=== PATIENT | male | born 1955 | race Caucasian/White ===

== ENCOUNTER 2018-12-19 10:26 | Inpatient (IN) | payer OTHER ==
--- NOTE | 2018-12-19 12:16 | RAD ---
EXAM: XR Ankle Lt 3 View STANDARD PROVIDED CLINICAL HISTORY: Pain FINDINGS: There is no evidence for fracture or other acute osseous abnormality. Alignment appears anatomic. Rosa M nt spaces appear preserved. IMPRESSION: No evidence for an acute osseous abnormality. If there is persistent clinical concern, conservative m anagement and follow-up imaging advised.
[2018-12-19 12:19] LABS: #Lymphocytes 0.8 thou/uL (1.20-3.40); #Monocytes 0.7 thou/uL (0.11-0.59); #Neutrophils 10.3 thou/uL (1.40-6.50); %Eosinophils 0.1 % (0.0-10.0); %Lymphocytes 6.5 % (21.0-51.0); %Monocytes 6.1 % (0.0-10.0); %Neutrophils 87.4 % (42.0-75.0); Hemoglobin 9.4 g/dL (14.0-18.0); Mean Corpuscular HGB CONC 32.2 g/dL (32.0-36.0); Mean Corpuscular Hemoglobin 26.4 pg (27.0-31.0); Mean Platelet Volume 5.5 fL (7.4-10.4); Platelet Count 652 thou/uL (130-400); RBC Distribution Width 14.6 % (11.5-14.5); Red Blood Cell (RBC) Count 3.57 mill/uL (4.70-6.10); White Blood Cell (WBC) Count 11.8 thou/uL (4.8-10.8)
[2018-12-19 12:39] LABS: ALT (SGPT) 24 U/L (8-55); AST (SGOT) 16 U/L (5-34); Albumin 2.7 g/dL (3.4-4.8); Alkaline Phosphatase 292 U/L (40-150); Anion Gap 10 mmol/L (10-20); BUN (Urea Nitrogen) 10 mg/dL (8.4-25.7); Bilirubin, Total 0.5 mg/dL (0.2-1.2); Calc. Creatinine Clearance 0 mL/min (70-130); Calcium 8.6 mg/dL (7.8-10.44); Carbon Dioxide 32 mmol/L (23-31); Chloride 93 mmol/L (98-107); Estimated GFR-MDRD Greater than 90; Globulin 3.7 g/dL (2.4-3.5); Glucose 98 mg/dL (80-115); Lipase 7 U/L (8-78); Potassium 3.1 mmol/L (3.5-5.1); Protein, Total 6.4 g/dL (5.8-8.1); Sodium 132 mmol/L (136-145)
[2018-12-19] MEDS ORDERED: Morphine 4 MG/ML VIAL ONE (12:45)
--- NOTE | 2018-12-19 12:52 | ULT ---
LEFT LOWER EXTREMITY VENOUS DOPPLER ULTRASOUND EVALUATION: HISTORY: Left lower extremity swelling and pain. FINDINGS: Images demonstrate echogenic clot in the left common femoral vein with some flow through it and adjac ent to it. This suggests incomplete left common femoral vein occlusion. The left superficial femoral vein and femoral profunda are patent. Good flow seen in the left poplite al vein and posterior tibial veins. The left greater saphenous vein is also patent. IMPRESSION: Partial thrombosis of the left common femoral vein. Transcribed Date/Time: 12/19/2018 12:56 PM
--- NOTE | 2018-12-19 13:27 | CT ---
CONTRAST ENHANCED CT IMAGES ABDOMEN AND PELVIS: HISTORY: Known renal mass with back pain, abdominal pain. COMPARISON: Comparison is made to previous exam from 10/25/2018. FINDINGS: The lung bases are unremarkable. No evidence of free intraperitoneal air seen. The liver, spleen and gallbladder are unremarkable. Adrenal glands unremarkable. Left ureteral stent is in place. There is a large amount of stool seen in the colon. Areas of abnormal thickening seen in the sigmoid colon noted on patient's previous CT, although not as extensive as on the previous exam. Appearing to originate from this area of sigmoid colon is a soft tissue area in the retroperitoneum which exten ds to the left of the L5 vertebral body measuring approximately 3.5 x 2.1 cm. There is also some heterogeneous enhancement involving the posterior aspect of the psoas muscle on axial image #50. A sm all pocket of gas is seen in the medial aspect of the psoas muscle on image #42. This is concerning for an inferior left psoas abscess. Areas of abnormal thickened small bowel also seen compatible the patient's history of colitis. The jossie brown has had partial resection of the distal small bowel with remaining shortened small bowel being abnormally thickened and inflamed. IMPRESSION: Continued areas of small bowel abnormal thickening and sigmoid colonic thickening compatible with jorge a collins's history of colitis. No definite evidence of definite high-grade bowel obstruction with air-fluid level seen. There is retroperitoneal and lower lumbar paravertebral soft tissue density whi ch extends into the left psoas muscle concerning for an abscess or phlegmon. Correlation of this area including the lumbar spine with pre and postcontrast enhanced MRI may be of use. Transcribed Date/Time: 12/19/2018 2:00 PM
[2018-12-19 14:18] LABS: Bilirubin Negative (Negative); Blood, Urine Large (Negative); Clarity CLOUDY (Clear); Glucose, Urine (Dipstick) Negative (Negative); Leukocyte Negative (Negative); Nitrite Negative (Negative); Protein, Urine (Dipstick) 100 mg/dL (Neg-Trace); Specific Gravity, Urine 1.016 (1.002-1.036); pH, Urine 7.5 (5.0-9.0)
[2018-12-19 14:21] LABS: Bacteria/HPF None Seen HPF (None Seen); Hyaline Casts/LPF 4-6 HYALINE CAST LPF (0-3 Hyaline); Pathc Cast-AUWi Flag 0.68 (0-2.49); RBC/HPF GREATER THAN 50-TNTC HPF (0-3); Squamous Epithelial 0-3 HPF (0-3); WBC/HPF 0-3 HPF (0-3)
[2018-12-19 14:35] LABS: Crystals/HPF 1+ AMORPH PHOS HPF (Negative)
[2018-12-19 14:36] LABS: INR-International Normal Ratio 1.1; PTT 27.5 SEC (22.9-36.1); Prothrombin Time 14.6 SEC (12.0-14.7)
[2018-12-19] MEDS ORDERED: Enoxaparin Sodium 60 MG/0.6 ML SYRINGE ONE (14:49)
[2018-12-19] MEDS ORDERED: metroNIDAZOLE 500 MG/100 ML BAG ONE (14:58)
[2018-12-19] MEDS ORDERED: Heparin 1,000 UNITS/ML VIAL ONE (15:00)
[2018-12-19] MEDS ORDERED: Vancomycin HCl 1.5 GM in Sodium Chloride 0.9% 250 ML 300 ML IVPB SCH ×2 (16:00→23:15)
[2018-12-19] MEDS ORDERED: ISOVUE-370 76%-LOCM 1 ML ONE (16:58)
[2018-12-19] MEDS ORDERED: Gadobenate Dimeglumine 529 MG/1 ML (20ML VIAL) ONE (17:03)
[2018-12-19] MEDS ORDERED: Potassium Chloride 20 MEQ TAB PO SCH (18:15)
--- NOTE | 2018-12-19 18:36 | HP ---
PRIMARY CARE: None. CHIEF COMPLAINT: "Pain got worse." HISTORY OF PRESENT ILLNESS: This is a 63-year-old male, hospitalized at [facility] [place] in [place] for back, leg and abdominal pain associated with dysuria. 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 The mass was not amenable to IR biopsy, he underwent colonoscopy, which identified a stricture and per the patient and his family, the biopsy results were negative. There were recommendations for outpatient followup and biopsy, however, they did not find a physician that was willing to perform it secondary to location. The patient reports he was discharged to home and continued to have pain that has gradually worsened to the point where he is not eating, not ambulating much and generally feeling poorly. He denies any fevers, chills, nausea, or vomiting. He does report his last bowel movement was normal 2 days ago and averages 3 bowel movements per day that are nonbloody. He describes the pain as aching and constant, rated at 9/10 and is located in the inguinal area, radiating up into the back on the left side as well as down his left leg. It is better with lying still, worse with sitting or putting pressure on that area. Prior to his hospitalization, he had never had a colonoscopy, or prior history of similar symptoms. He denies any trauma or precipitating factors. For pain, he has been managing with Tylenol, taking 1 tablet per day, and reports it is ineffective. In the emergency room, the patient found to have a DVT in his left lower extremity, as well as abnormal thickening of the small bowel and sigmoid colon, retroperitoneal and lower lumbar soft tissue density, which extends into the left psoas muscle concerning for an abscess. He received morphine 8 mg IV, 1 L normal saline, Lovenox 60 mg, metronidazole 500 mg, and hospitalist called for admission. Vancomycin is ordered but not given, and Levaquin ordered by not given. ALLERGY TO MEDICATION: Penicillin. CURRENT MEDICATIONS: Tylenol. PAST MEDICAL HISTORY: From hospitalization in September 2018 was for left mesenteric mass 7 cm with abnormal adenopathy, left ureteral obstruction, status post stent , emphysematous changes on CT scan. PAST SURGICAL HISTORY: Left ureteral stent. SOCIAL HISTORY: The patient uses a half pack of tobacco per day, reports quitting alcohol 3 years ago. He lives with his , Quan, and his daughter, Camille Brand is his surrogate decision maker and he is a full code. FAMILY HISTORY: He denies. REVIEW OF SYSTEMS: Negative for fevers, chills, nausea, or vomiting. Positive for progressive worsening of pain and dysuria. Positive also for sneezing and congestion that occurred since he was in MRI today. All remaining review of systems are reviewed and negative. PHYSICAL EXAMINATION: VITAL SIGNS: Blood pressure 143/79, pulse 87, respirations 20, temperature 97.8 , and saturations are 100% on room air. GENERAL: Awake, alert, responsive, in no apparent distress. HEENT: Pupils are equal, round, and reactive to light. Oral mucosa is pink and slightly dry. Poor dentition. NECK: Supple, nontender. LYMPHATICS: No palpable cervical or supraclavicular lymphadenopathy. LUNGS: Clear to auscultation bilateral. No audible wheezing, rhonchi, or rales. HEART: Normal S1 and S2. Regular rate and rhythm. No audible murmurs. ABDOMEN: Soft with present bowel sounds. Tenderness to palpation throughout the left side. No rebound or guarding. EXTREMITIES: 1+ pitting edema in his left foot and distal lower extremity. SKIN: No erythema or exanthems. NEURO: Moves arms and legs equally. PSYCH: Appears euthymic. VASCULAR: 2+ dorsalis pedis pulses. LABORATORY DATA: CBC: 11.8, 9.4, 29.3, 652. D-dimer 2.02. INR 1.1. Chemistry: 132, 3.1, 93, 32, 10, 0.65. AST 16, ALT 24, alkaline phosphatase 292, total protein 6.4, and albumin 3.7. Lipase is 7. Urine shows present protein, large blood with greater than 50 red blood cells, and 4 to 6 hyaline casts. IMAGING DATA: Ankle x-ray, negative for an acute abnormality. Foot x-ray, negative for acute abnormality. Left lower extremity ultrasound, partial thrombosis of the left common femoral vein. Abdomen pelvic CT personally reviewed, small bowel abnormal thickening and sigmoid colon thickening compatible with history of colitis. No definite high-grade bowel obstruction. Retroperitoneal and lower lumbar paravertebral soft tissue density , which extends into the left psoas muscle concerning for an abscess or phlegmon, with recommendation for lumbar spine pre and postcontrast enhanced MRI. EKG, personally reviewed, normal axis, sinus rhythm, normal intervals, no ST changes. IMPRESSION: 1. Soft tissue density in the left paravertebral areas, previously characterized as mass, which has not been biopsied. Differential diagnosis for today includes abscess and mass. 2. Left ureteral obstruction with hematuria, status post stent that was placed now 3 months ago. 3. Hyponatremia, uncertain etiology. 4. Anemia, uncertain chronicity and etiology. 5. Hypokalemia. 6. Tobacco abuse with history of emphysematous changes on imaging. PLAN: 1. Admission to the hospital. 2. Consultation with General Surgery, who has evaluated the patient and plan to start with IV antibiotic therapy. 3. ID consultation for discernment on antibiotic coverage. 4. Continuing the Lovenox for now diagnosed DVT, left lower extremity, monitor for bleeding. 5. Monitor hemoglobin. We will check iron and vitamin studies for source of anemia. Type and screen 6. Urine studies for workup of hyponatremia, and replacement of potassium. 7. Given the hematuria, the ureteral stent, the need for full anticoagulation for the DVT, we will place Urology consult for assistance/guidance. 8. Manage pain with morphine, which the patient reports helped in the emergency room. Will add scheduled and prn bowel meds to reduce likelihood of constipation with morphine. 9. GI prophylaxis not indicated. The patient will be written for a diet. 10. Code status is full. Surrogate decision maker is the patient's daughter. 11. Reviewed the plan of care with the patient and his family. No questions or further needs at the end of evaluation. 12. The patient is at high risk given age, comorbidities, and current presentation. Job ID: [id number] [facility]
--- NOTE | 2018-12-19 19:04 | MRI ---
PRE AND POST CONTRAST ENHANCEMENT MRI IMAGES OF THE THORACIC SPINE: History: Back pain. Technique: Multiplanar, multisequence MRI images were obtained of the thoracic spine before and after the administration of IV contrast. FINDINGS: The thoracic spine is unremarkable with no evidence of thoracic spine masses or lesions. No evidence of vertebral body fractures seen. Disc spaces are well maintained. The neural foramen are patent. IMPRESSION: Unremarkable pre and post contrast enhanced MRI images of the thoracic spine. POS: FFK
--- NOTE | 2018-12-19 20:20 | MRI ---
PRE AND POST CONTRAST ENHANCED MRI OF THE LUMBAR SPINE: History: Abnormal density seen on CT. Evaluate for psoas abscess and spinal abscess. Technique: Multiplanar, multisequence pre and post contrast MRI images were obtained of the lumbar sp ine. FINDINGS: For the purposes of this dictation, the last freely mobile vertebral body will be considered to be th e L5 vertebral body. All other vertebral bodies are numbered according to this. T12-L1, L1-2: Unremarkable. L2-3: Mild disc desiccation is seen. The central canal and neural foramen are patent. Left sided hydronephrosis is seen with left ureteral stent in place. L3-4: The central canal and neural foramen are patent. Some mild asymmetry is seen beginning at the L3-4 level of the psoas extending inferiorly along the m edial aspect of the left psoas muscle into the pelvis extending all the way to the upper sacral regio n. There is a left paravertebral collection which extends from L3 and involves the left paravertebral area anterior and to the left of the L4 and L5 vertebra. It extends into the anterior aspect of the S1 and S2 sacral vertebrae. As noted on CT, it may originate from the sigmoid colon and is concerning for paravertebral abscess. The abscess appears for the most part in the left prevertebral space. The re are areas of signal abnormality within the L5 vertebral body as well as the S1 and S2 vertebra as well as the sacral ala at these levels, more on the left than on the right. This is concerning for os teomyelitis of L5, S1, and S2 vertebral levels. The left L4, L5, and left S1 no roots appear to be en veloped by the left paravertebral collection. IMPRESSION: Left paravertebral area of soft tissue abnormality involving the psoas and prevertebral soft tissue. This is concerning for prevertebral abscess which extends and involves posteriorly the L5 and upper s acral vertebral levels. No evidence of epidural abscess or collection seen. At L5 and upper sacral re gions these soft tissue does envelop the exiting L4, L5 and S1 nerve roots. The L5 and S1 vertebra do demonstrate some T2 signal changes within the vertebral body. POS: FFK
[2018-12-19] MEDS: metroNIDAZOLE 500 MG in Premix Bag 1 BAG IVPB SCH (20:48)
[2018-12-19] MEDS ORDERED: Polyethylene Glycol 3350 17 GM Packet PO PRN (21:58)
--- NOTE | 2018-12-19 22:38 | CON ---
DATE OF CONSULTATION: REASON FOR CONSULT: Psoas abscess. HISTORY OF PRESENT ILLNESS: Mr. Andre is a 63-year-old man, with a 3-month history of abdominal and back pain. He stated that he has chronic constipation alternating with diarrhea for sometime and had onset of abdominal pain, back pain, and 4 days of diarrhea. He went to the [facility] in [place], [place], where he was told that he had a mass that was blocking his kidney. He underwent a colonoscopy, which he was told was normal and a ureteral stent placement on the left and was sent home with a week of antibiotics. He states that his symptoms got better for a little while, but then came back. He had continuous abdominal and back pain as well as left leg swelling and early satiety. He can only eat a few bites of food and then feels full. He has some nausea as well, but denies any fevers or chills throughout. He has lost about 20 pounds through this whole process and finally decided to come back and get re-evaluated. He was seen in our emergency room and was found to have evidence of a psoas abscess as well as a left common femoral DVT. PAST MEDICAL HISTORY: Alcohol abuse, but quit 3 years ago. He smokes half a pack a day. Does not use illicit drugs. PAST SURGICAL HISTORY: Colonoscopy and ureteral stent placement in September. FAMILY HISTORY: Mother had colon cancer in her 60s. Grandmother had pancreas cancer and grandfather had brain cancer. REVIEW OF SYSTEMS: Ten system review of systems is negative except per HPI. He continues to have alternating constipation and diarrhea as is typical for him. PHYSICAL EXAMINATION: VITAL SIGNS: The patient is afebrile with normal vital signs. HEENT: Unremarkable. NECK: Supple without lymphadenopathy or thyroid nodules. HEART: Regular in its rate and rhythm without murmurs, rubs, or gallops. LUNGS: Clear to auscultation bilaterally. ABDOMEN: Soft, slightly distended. No palpable masses or hernias. He is tender to palpation in the left lower quadrant, left flank, and back, but does not exhibit rigidity, rebound, or guarding. EXTREMITIES: His left ankle is swollen compared to the right with pitting edema. He has good pedal pulses. NEUROLOGICAL: No focal deficits. PSYCHIATRY: Alert, oriented, and appropriate and able to give a good history. LABORATORY DATA: White count is elevated at 11.8 with a left shift. Platelets are 652. Hematocrit is 29.3. Coags are normal. D-dimer is high at 2.02. Sodium is low at 132, potassium is low at 3.1, bicarb is elevated at 32, alkaline phosphatase is elevated at 292, albumin is low at 2.7. IMAGING STUDIES: CT images are reviewed and I agree with the written report. There is swelling and hypodensity of the psoas muscle with a few little pockets of air consistent with infection in this area. I do not see a definite fluid pocket in this and the involved area lies immediately behind the left ureter and iliac artery abutting the vertebral body. ASSESSMENT: Psoas abscess, questionable involvement of the vertebral body given alkaline phosphatase elevation and back pain. This does not appear to be percutaneously drainable and will be very difficult to address laparoscopically due to its location behind the ureter and iliac artery. He would likely require an open surgery to surgically drain this abscess; however, it may be more of a phlegmon than an abscess at this point, and the area most suspicious for an abscess is only about 3.5 x 2 cm in size. It might be difficult even open to locate this area. At this point, I favor a trial of IV antibiotics with reimaging at a later date. If this persists or enlarge, an open drainage will likely be necessary. The colon looks a little bit inflamed as well, but certainly I do not see anything that looks like a mass and he did have a colonoscopy at [place] according to him and his family. So this is all likely infectious in etiology. I suspect he had a partial treatment with his short course of antibiotics and that this is more of a smouldering partially treated infection than an aggressive one. He does have a large amount of stool in the right and transverse colon, but does not look like he is obstructed. He will require a bowel regimen and nutritional support as well with oral supplements. At this point since urgent surgery is not planned, full anticoagulation for his DVT is indicated. If he fails medical management, we can hold this perioperatively. Job ID: [id number]
[2018-12-20] MEDS: Morphine 4 MG/ML VIAL SLOW IVP PRN ×2 (01:25→18:36)
[2018-12-20] MEDS: metroNIDAZOLE 500 MG in Premix Bag 1 BAG IVPB SCH ×2 (05:27→14:50)
[2018-12-20] MEDS ORDERED: Enoxaparin Sodium 60 MG/0.6 ML SYRINGE SC SCH ×2 (06:00→09:00)
[2018-12-20 06:24] LABS: #Lymphocytes 0.8 thou/uL (1.20-3.40); #Monocytes 0.8 thou/uL (0.11-0.59); #Neutrophils 8.3 thou/uL (1.40-6.50); %Lymphocytes 7.7 % (21.0-51.0); %Monocytes 8.2 % (0.0-10.0); %Neutrophils 84.2 % (42.0-75.0); Mean Corpuscular Hemoglobin 26.2 pg (27.0-31.0); Mean Corpuscular Volume 81.8 fL (78.0-98.0); Mean Platelet Volume 5.9 fL (7.4-10.4); Platelet Count 527 thou/uL (130-400); RBC Distribution Width 14.4 % (11.5-14.5); Red Blood Cell (RBC) Count 3.07 mill/uL (4.70-6.10); White Blood Cell (WBC) Count 9.8 thou/uL (4.8-10.8)
[2018-12-20 06:46] LABS: Anion Gap 15 mmol/L (10-20); BUN (Urea Nitrogen) 9 mg/dL (8.4-25.7); Calc. Creatinine Clearance 91 mL/min (70-130); Calcium 8.4 mg/dL (7.8-10.44); Carbon Dioxide 24 mmol/L (23-31); Chloride 98 mmol/L (98-107); Estimated GFR-MDRD Greater than 90; Glucose 77 mg/dL (80-115); Iron 17 ug/dL (65-175); Potassium 3.8 mmol/L (3.5-5.1); Sodium 133 mmol/L (136-145); Transferrin, Serum 76 mg/dL (163-344)
[2018-12-20 07:16] LABS: Folate (Folic Acid) 15.4 ng/mL (7.0-31.4)
--- NOTE | 2018-12-20 07:41 | PDOC.PN ---
- Subjective Encounter Start Date: 12/20/18 Encounter Start Time: 09:20 Subjective: Patient with abdpain well controlled on medications. No SOB. No Chest pain. -: Left thigh still hurting on and off. - Objective Resuscitation Status - Order Detail: 12/19/18 17:47 Resuscitation Status Routine Resuscitation Status: FULL: Full Resuscitation MAR Reviewed: Yes Vital Signs & Weight: Vital Signs (12 hours) Temp Pulse Resp BP Pulse Ox 12/20/18 07:21 98.1 F 102 H 15 125/74 92 L 12/20/18 04:00 98.3 F 101 H 20 135/75 92 L 12/20/18 00:00 99.2 F 112 H 20 128/75 92 L 12/19/18 19:45 94 L Weight Weight 117 lb 14.4 oz I&O: 12/19/18 12/20/18 12/21/18 06:59 06:59 06:59 Intake Total 640 Balance 640 Result Diagrams: 12/20/18 05:00 12/20/18 05:00 Additional Labs: Accuchecks 12/19/18 20:25 POC Glucose 161 H Phys Exam - Physical Examination Constitutional: NAD HEENT: moist MMs Respiratory: no rales, no rhonchi rare wheeze Cardiovascular: RRR, no significant murmur Gastrointestinal: soft, positive bowel sounds mild TTP LLQ Musculoskeletal: no edema Neurological: non-focal, moves all 4 limbs Psychiatric: normal affect, A&O x 3 Dx/Plan (1) Psoas abscess, left Code(s): K68.12 - PSOAS MUSCLE ABSCESS Status: Acute Comment: on Levaquin, Metronidazole, and Vancomycin since 12/19/2018, Dr. Cornelius and Dr. Horn consulted (2) Ureteral obstruction, left Code(s): N13.5 - CROSSING VESSEL AND STRICTURE OF URETER W/O HYDRONEPHROSIS Status: Acute Comment: s/p stent placement in [employer], urology consulted (3) Anemia Code(s): D64.9 - ANEMIA, UNSPECIFIED Status: Acute Comment: likely due to chronic disease as well as urinary or GI blood loss (4) Hyponatremia Code(s): E87.1 - HYPO-OSMOLALITY AND HYPONATREMIA Status: Acute Comment: mild, observe (5) Hypokalemia Code(s): E87.6 - HYPOKALEMIA Status: Resolved (6) Tobacco abuse Code(s): Z72.0 - TOBACCO USE Status: Acute (7) Deep venous thrombosis of left femoral vein Code(s): I82.412 - ACUTE EMBOLISM AND THROMBOSIS OF LEFT FEMORAL VEIN Status: Acute Qualifiers: Chronicity: acute Qualified Code(s): I82.412 - Acute embolism and thrombosis of left femoral vein Comment: on full dose Lovenox - Plan cont current plan of care, continue antibiotics, DVT proph w/lovenox Continue IV antibiotics, abscess in difficult place to access so hopefully -: will improved with abx only. * . - Discharge Day Encounter end time: 09:30
[2018-12-20] MEDS: Senokot S 8.6-50 MG TAB PO SCH ×2 (08:51→21:24)
[2018-12-20] MEDS: Vancomycin HCl 1 GM in Premix Bag 1 BAG IVPB SCH (11:03)
--- NOTE | 2018-12-20 14:59 | PDOC.GSPN ---
Surgery Progress Note: Subj - Subjective Narrative: Patient feels a little better today. He is still having a lot of back pain which makes it hard for him to sleep. We did get the records from [facility]. CT report states that there was a 7.1 cm spiculated mass in the retroperitoneum abutting the sigmoid colon. I don't really see anything on his most recent CT scan that is consistent with that description. I think this is likely an inflammatory phlegmon related to diverticulitis, especially given a normal colonoscopy, but I will review the scans with our radiologist. I don't know if it would be helpful to get additional imaging of that area with oral contrast as well. Unfortunately I do not have access to the previous images, although we can try to obtain these. Dr. Horn has been by to see the patient. There was some abnormal signaling in the vertebrae on lumbar MRI. The patient is tolerating his diet but doesn't like the hospital food. I did tell him that he could ask his family to bring in food from home. I will also order some supplements. Surgery Progress Note: Obj - Vital signs Vital signs: Vital Signs - Most Recent Temp Pulse Resp BP Pulse Ox 98.1 F 96 16 144/85 H 96 12/20/18 07:21 12/20/18 12:00 12/20/18 12:00 12/20/18 12:00 12/20/18 12:00 Surgery Progress Note: Results - Labs Result Diagrams: 12/20/18 05:00 12/20/18 05:00 Lab results: Laboratory Results - last 24 hr 12/20/18 12/20/18 12/20/18 05:00 05:00 05:00 WBC RBC Hgb Hct MCV MCH MCHC RDW Plt Count MPV Neutrophils % Lymphocytes % Monocytes % Eosinophils % Basophils % Neutrophils # Lymphocytes # Monocytes # Eosinophils # Basophils # Sodium 133 L Potassium 3.8 Chloride 98 Carbon Dioxide 24 Anion Gap 15 BUN 9 Creatinine 0.63 L Estimated GFR (MDRD) Greater than 90 Glucose 77 L Calcium 8.4 Iron 17 L Transferrin 76 L Ferritin 666.86 H Vitamin B12 307 Folate 15.40 12/20/18 05:00 WBC 9.8 RBC 3.07 L Hgb 8.0 L Hct 25.1 L MCV 81.8 MCH 26.2 L MCHC 32.0 RDW 14.4 Plt Count 527 H MPV 5.9 L Neutrophils % 84.2 H Lymphocytes % 7.7 L Monocytes % 8.2 Eosinophils % 0.0 Basophils % 0.0 Neutrophils # 8.3 H Lymphocytes # 0.8 L Monocytes # 0.8 H Eosinophils # 0.0 Basophils # 0.0 Sodium Potassium Chloride Carbon Dioxide Anion Gap BUN Creatinine Estimated GFR (MDRD) Glucose Calcium Iron Transferrin Ferritin Vitamin B12 Folate
[2018-12-20] MEDS ORDERED: Heparin 10,000 UNITS/ 10 ML VIAL SLOW IVP SCH (15:15)
[2018-12-20 15:42] LABS: Platelet Count 578 thou/uL (130-400)
--- NOTE | 2018-12-20 19:17 | CON ---
DATE OF CONSULTATION: 12/20/2018 HISTORY OF PRESENT ILLNESS: This is a 63-year-old white male, who was admitted 2 days ago with abdominal pain. He has a complicated history. He was apparently initially seen in [place], [place], at one of the hospitals there in early September. He was found to have a left lower quadrant mass that was felt to be cancer, but no biopsies were done of it. There was left hydronephrosis. I am assuming it was related to this mass, although there is no reports that indicated this to be exactly the case, but there certainly was nothing on the reports that read, or there was a stone or anything like that. It was felt to possibly be colon cancer, had a colonoscopy done that apparently showed only some stricture or some external compression, but nothing that looked like a cancer. This again was all in two and half to three months ago. He has lost about 20 pounds of weight over that time. He has had very poor appetite. He still has bowel movements about every 3 day, which is normal for him. He is having some burning and occasional blood in the urine with the stent in place. He has never had kidney stones to his knowledge. He does not think he has had any history in his family of prostate cancer. His hemoglobin is 8.0 today and it was 9.4 yesterday, it is probably hydration. His white count improved. His creatinine is normal at 0.63. Urinalysis, which was voided shows over 50 red cells, which is pretty common with somebody with the stent and it was described as yellow. No bacteria were seen. There was only 0 to 3 white cells. Urine culture shows no growth at 24 hours of the urine. ALLERGIES: HE HAS AN ALLERGY TO PENICILLIN. MEDICATIONS: He normally only takes Tylenol. PAST MEDICAL HISTORY: No significant medical history in the past. He does have history of tobacco abuse and quit drinking alcohol 3 years ago. He lives in [place]. He was brought here by his daughter, I guess, who grew up in this area. PHYSICAL EXAMINATION: He does not have any flank tenderness. His abdomen is tympanitic, but nontender and soft. Bladder does not feel to be distended. No rebound. No guarding. Penis is without lesion. The testicles descended without mass or tenderness. Rectal exam reveals normal tone. His prostate is not significantly enlarged nor is it nodular. It is a normal consistency. IMPRESSION: 1. History of left hydronephrosis three months ago, was treated with a stent. The family did go back to see the urologist, who said that they would change his stent out at three months and depending on what this mass was and whether it was treated or how it progressed. When they contacted the urologist again, he said he would probably leave it in for 6 months. 2. Microscopic hematuria. 3. Recent deep venous thrombosis and he is going to be anticoagulated. PLAN: Plan then would be to leave his current stent in at least still we know a bit more what is going on with him. He is on antibiotics for a CT scan that done here that suggests there is an abscess, where this mass was in the left lower quadrant. Again, it will be difficult to drain it. It is not a big collection and I think the thoughts are that perhaps antibiotics will take care of this. He is on Flagyl and Levaquin and vancomycin. Stent appears to be in good position. Kidneys seem to be working fine. Urinalysis really is not that bad at all with the stent in and the creatinine is normal. Perhaps, we can find out a little bit more what is going with him and what his diagnosis actually is and what his outcome will be before looking at either removing or changing out the stent. There is no murray on that. I will think waiting another week or two for even longer would not be much of an issue and looks like the stent is in good positioning. Job ID: [id number]
[2018-12-20] MEDS ORDERED: Heparin 25,000 units/D5W 500 ML IVPB SCH (21:00)
--- NOTE | 2018-12-20 21:55 | CON ---
DATE OF CONSULTATION: 12/20/2018 REASON FOR CONSULTATION: Abnormalities on abdomen and pelvis CT scan. HISTORY OF PRESENT ILLNESS: A 63-year-old patient who has history of chronic smoking and 2 months history of weight loss and progressively worsening left flank pain and lumbosacral spine pain. He did have some dysuria associated with it and eventually ended up admitted to hospital in [place] after being to a local emergency room area hospitals. He ended up admitted for 3 days in [facility] in [place] and had a CT which demonstrated a possible mass in the mesentery in the left side. The patient had a stent placed because of identified hydronephrosis, it was felt that the mass was not approachable for biopsy because of the risk of bleeding. He was sent home for followup in the outpatient setting. He ended up now at [facility] with worsening of the pain. No headaches. No visual symptoms, sore throat, odynophagia, or dysphagia. No vomiting. No hematemesis, melena, or hematochezia, still with dysuria. No joint symptoms. He has had at least 15 20 pounds weight loss over the past few months. He did have intermittent low-grade temperature elevation noted. PAST MEDICAL HISTORY: As above, but no other previous medical history. No surgical intervention in the past. SOCIAL HISTORY: Positive smoker. He used to drink daily, but quit 3 years ago. . Lives in [place], close to [facility]. FAMILY HISTORY: Noncontributory. ALLERGIES: PENICILLINS WITH RASH. CURRENT MEDICATIONS: 1. Lovenox. 2. Lactulose. 3. Flagyl. 4. Levaquin. 5. Vancomycin. PHYSICAL EXAMINATION: VITAL SIGNS: T-max 99.7, blood pressure 144/85, pulse 96, respirations 16, and O2 saturation 96%. SKIN: With no abnormalities. No lymphadenopathy. HEENT: Temporal wasting noted. Ocular movements conjugate. Sclerae white. Pupils are equal. Nasal passage patent. Ear exam normal. Oral cavity with numerous missing teeth, remainder ones with marked decay. No mucosal disease. NECK: Supple. No jugular vein distention or carotid bruits. No thyromegaly. LUNGS: Symmetric air entry. No wheezing. HEART: S1 and S2. Regular rate with a soft aortic murmur. ABDOMEN: With some distention, but no tenderness noted. No organomegaly. No ascites. MUSCULOSKELETAL: Tenderness noted in the lumbosacral spine area. No joint inflammatory activity. No edema. Pulses 1+ in dorsalis pedis. Moves extremities equally. NEUROLOGIC: Awake, oriented, follows commands. LABORATORY DATA: White cell counts are 11.8 and 9.8, hemoglobin 9.4, MCV 82, platelets are 652 and 527, 87% neutrophils. INR 1.1. Sodium 132, creatinine 0.65, alkaline phosphatase 292 with albumin 2.7. Iron 17, transferrin 76, ferritin 666, B12, folate normal. Urinalysis with greater than 50 rbc's, 0-3 wbc's. Two sets of blood culture, urine culture, no growth thus far. Abdomen and pelvis CT with small bowel, but abnormal thickening and sigmoid colonic thickening and has retroperitoneal and lower lumbar paravertebral soft tissue density which extends into the left psoas muscle. The MRI of the thoracic spine did not show any significant findings. Lumbar spine MRI with left paravertebral area soft tissue abnormality involving psoas and prevertebral soft tissue either an abscess or mass lesion extending into the vertebra. I do not think the disk is involved in the pictures. Vascular ultrasound, left lower extremity with evidence of deep vein thrombosis, left common femoral vein. ASSESSMENT: 1. Chronic smoking. 2. Pain, chronic, left flank and back. 3. Mild neutrophilia with thrombocytosis. 4. Retroperitoneal mass vs abscess 5. Deep vein thrombosis, left lower extremity. DISCUSSION: Differential diagnosis includes malignancy with obstruction of left kidney, which led to the stent placement versus inflammatory process due to infection with extension into the retroperitoneal or primarily originating in the vertebra and then extending into the retroperitoneum vs malignancy originating in mesentery with retroperitoneal extension. In view of the DVT in the left lower extremity and chronicity of the lesion, one would think that a malignancy is the more likely scenario. I have discussed with Dr. Valdez, Radiology and he is not sure they will be able to access it, but they can try it for cytology and cultures. If that fails, then his only other option would be surgical approach to get a sample for cytology or histopathology. I have ascertained that the hospital in [place] did not submit cultures. The other thing would be assessment of the urine for atypical cells if it could be a urothelial carcinoma. Job ID: [id number] [facility]
[2018-12-21] MEDS: metroNIDAZOLE 500 MG in Premix Bag 1 BAG IVPB SCH ×4 (01:14→17:52)
[2018-12-21] MEDS: Vancomycin HCl 1 GM in Premix Bag 1 BAG IVPB SCH ×3 (01:14→17:00)
[2018-12-21 04:14] LABS: Hemoglobin 8.7 g/dL (14.0-18.0); Platelet Count 599 thou/uL (130-400)
[2018-12-21 04:30] LABS: Calc. Creatinine Clearance 97 mL/min (70-130); Estimated GFR-MDRD Greater than 90
--- NOTE | 2018-12-21 07:41 | PDOC.PN ---
- Subjective Encounter Start Date: 12/21/18 Encounter Start Time: 13:00 Subjective: Patient with persistent left abd pain. Left leg swelling improved. Still -: with soreness in left thigh. No fever. Awaiting CT guided biopsy if -: possible. - Objective Resuscitation Status - Order Detail: 12/19/18 17:47 Resuscitation Status Routine Resuscitation Status: FULL: Full Resuscitation MAR Reviewed: Yes Vital Signs & Weight: Vital Signs (12 hours) Temp Pulse Resp BP Pulse Ox 12/21/18 07:23 98.1 F 95 17 133/77 93 L 12/21/18 04:00 97.9 F 94 20 132/70 93 L Weight Admit Weight 117 lb 14.4 oz Weight 117 lb 6.4 oz I&O: 12/20/18 12/21/18 12/22/18 06:59 06:59 06:59 Intake Total 640 660 Balance 640 660 Result Diagrams: 12/21/18 04:06 12/21/18 04:06 Additional Labs: Accuchecks 12/20/18 16:09 POC Glucose 115 H Phys Exam - Physical Examination Constitutional: NAD HEENT: moist MMs Respiratory: no wheezing, no rales, no rhonchi Cardiovascular: RRR, no significant murmur Gastrointestinal: soft, no distention, positive bowel sounds TTP LLQ Musculoskeletal: no edema Neurological: non-focal, moves all 4 limbs Psychiatric: normal affect, A&O x 3 Dx/Plan (1) Psoas abscess, left Code(s): K68.12 - PSOAS MUSCLE ABSCESS Status: Acute Comment: on Levaquin, Metronidazole, and Vancomycin since 12/19/2018, Dr. Cornelius and Dr. Horn consulted, Dr. Horn concerned about cancer, will attempt needle biopsy 12/21/18 morning (2) Ureteral obstruction, left Code(s): N13.5 - CROSSING VESSEL AND STRICTURE OF URETER W/O HYDRONEPHROSIS Status: Acute Comment: s/p stent placement in [place], urology consulted (3) Anemia Code(s): D64.9 - ANEMIA, UNSPECIFIED Status: Acute Comment: likely due to chronic disease as well as urinary or GI blood loss (4) Hyponatremia Code(s): E87.1 - HYPO-OSMOLALITY AND HYPONATREMIA Status: Acute Comment: mild, observe (5) Hypokalemia Code(s): E87.6 - HYPOKALEMIA Status: Resolved (6) Tobacco abuse Code(s): Z72.0 - TOBACCO USE Status: Acute (7) Deep venous thrombosis of left femoral vein Code(s): I82.412 - ACUTE EMBOLISM AND THROMBOSIS OF LEFT FEMORAL VEIN Status: Acute Qualifiers: Chronicity: acute Qualified Code(s): I82.412 - Acute embolism and thrombosis of left femoral vein Comment: on full dose Lovenox, switched to Heparin for biopsy yesterday, held this AM 6 hours prior to biopsy - Plan cont current plan of care, continue antibiotics Restart Lovenox tonight, at least 4 hours after biopsy. * . - Discharge Day Encounter end time: 13:10
[2018-12-21] MEDS: Senokot S 8.6-50 MG TAB PO SCH ×2 (08:27→20:38)
[2018-12-21] MEDS: Morphine 4 MG/ML VIAL SLOW IVP PRN ×2 (08:28→12:34)
[2018-12-21] MEDS: Acetaminophen 325 MG TAB PO PRN (12:19)
[2018-12-21] MEDS ORDERED: Fentanyl 100 MCG/2 ML VIAL ONE (13:39)
[2018-12-21] MEDS ORDERED: Midazolam HCl 2 mg/2 ml Vial ONE (13:39)
[2018-12-21] MEDS ORDERED: Sodium Bicarbonate 2.5 MEQ/5 ML VIAL ONE (13:40)
--- NOTE | 2018-12-21 15:08 | CT ---
CT Retroperitoneal Abscess Aspiration CT GUIDED ASPIRATION OF RETROPERITONEAL/PARASPINOUS ABSCESS CLINICAL HISTORY: Mesenteric mass, with adjacent abnormal retroperitoneal/paraspinous fluid collecti on containing air. PROCEDURE: Informed consent was obtained and the patient was escorted to the procedural suite, placed in prone p osition. Conscious sedation for a total of 45 minutes was performed, administered by the radiology nurse, with the patient consistently monitored throughout the duration of the exam in stable conditio n. The patient's skin was prepped and draped in a standard sterile fashion and topical anesthesia with buffered 1% lidocaine was performed. A 20-gauge needle were advanced to the leading edge of the fluid and air collection of the left paraspinous region. After adequate placement was confirmed with CT fluoroscopic imaging, 3 subsequent aspiration specimens were obtained via percutaneous sampli ng with the 20-gauge needle. The location was confirmed with CT fluoroscopic imaging and the specimens were submitted to the pathology department for further evaluation. Subsequently, all device s were then removed from the patient. No unexpected procedural complications were present. The patient was returned to the hospital floor i n stable condition. IMPRESSION: Technically successful percutaneous aspiration of left paraspinous fluid/air collection. Laboratory results are pending. Note is made that the sampling of this fluid/air collection does not definitively evaluate the mesent keely mass of the abdomen and pending results, the separate mass may be further interrogated, pending results of current procedure. The case, as well as arrangements for laboratory orders were discussed with patient's physician Dr. Tyrese alford via telephone.
[2018-12-21 15:40] LABS: Vancomycin, Trough 10.8 ug/mL
[2018-12-21] MEDS ORDERED: GoLYTELY 4,000 ml Bottle PO SCH (16:00)
--- NOTE | 2018-12-21 16:09 | PDOC.GSPN ---
Surgery Progress Note: Subj - Subjective Narrative: Patient was down in CT for possible aspiration when I came by. I talked to his family member who was at the bedside. I told her that I reviewed his images with Dr. Chavarria of radiology yesterday and he is of the opinion that the inflammatory process originated from the ileum. The sigmoid mesentery both looked better compared to the CT that we have from October, but the ileum continues to look thickened and inflamed and abnormal. This is concerning for Crohn's disease. I discussed the case with Dr. Ma, and asked him to consult. Dr. Ma had been by to see him already when I stopped by and the plan was to do a bowel prep and colonoscopy and try to evaluate the terminal ileum. If this is consistent with Crohn's disease, patient may require diversion. I'm going to be out of town for the next week, but I will ask one of my partners to follow up. Surgery Progress Note: Obj - Vital signs Vital signs: Vital Signs - Most Recent Temp Pulse Resp BP Pulse Ox 97.5 F L 80 17 125/74 95 12/21/18 16:02 12/21/18 16:02 12/21/18 16:02 12/21/18 16:02 12/21/18 16:02 Surgery Progress Note: Results - Labs Result Diagrams: 12/21/18 04:06 12/21/18 04:06 Lab results: Laboratory Results - last 24 hr 12/21/18 12/21/18 12/21/18 04:06 04:06 04:06 Hgb 8.7 L Hct 27.4 L Plt Count 599 H APTT 36.0 Creatinine 0.59 L Estimated GFR (MDRD) Greater than 90 Vancomycin Trough 12/21/18 15:09 Hgb Hct Plt Count APTT Creatinine Estimated GFR (MDRD) Vancomycin Trough 10.8
[2018-12-21] MEDS: Vancomycin HCl 750 MG in Sodium Chloride 0.9% 250 ML 250 ML IVPB SCH (16:46)
[2018-12-21] MEDS: Enoxaparin Sodium 60 MG/0.6 ML SYRINGE SC SCH (20:38)
--- NOTE | 2018-12-21 21:30 | CON ---
DATE OF CONSULTATION: 12/21/2018 CHIEF COMPLAINT: Abdominal pain. HISTORY OF PRESENT ILLNESS: Mr. Andre is a 63-year-old man who had onset of left-sided abdominal pain that radiates around to his left back 2 months ago. This pain has persisted and gradually worsened over the last couple of months. He has had a 20-pound weight loss associated with that. He has lost his appetite. He has had some constipation, has a bowel movement every 3 or 4 days. He has had no visible blood in the stool. He went to the hospital in [place], had a CT scan that showed a possible mass from the mesentery of the left side of the abdomen. He subsequently underwent a colonoscopy with concern for a possible colon mass and this was reportedly negative. He also had a left ureteral stent placed due to the mass causing obstruction of the ureter. He was discharged and came to [facility] Emergency Room on 12/19/2018. CT scan of the abdomen and pelvis was repeated and showed thickening of the small intestine and sigmoid colon, a possible abscess in the paravertebral soft tissue and left psoas muscle was also noted. Dr. Cornelius was consulted and also reviewed the CT scan with Radiology and it was noted that the terminal ileum seemed to possibly be involved with the area of colon thickening and mesenteric inflammation and consideration for Crohn's of the terminal ileum causing as a source for the abscess was given in GI was therefore consulted. Mr. Andre went for drainage of the paraspinous abscess today. He has been treated with antibiotics. PAST MEDICAL HISTORY: Otherwise negative prior to this. PAST SURGICAL HISTORY: Has been negative. FAMILY HISTORY: Positive for colon cancer in his mother. SOCIAL HISTORY: Smokes half a pack a day. He quit alcohol 3 years ago, did drink daily prior to that. No history of IV drug use. He lives in [place], [place]. ALLERGIES: PENICILLIN. MEDICATIONS: Currently as an inpatient include 1. Enoxaparin 50 mg subcu twice daily. 2. Levofloxacin. 3. Metronidazole. 4. Vancomycin. REVIEW OF SYSTEMS: Negative x10 systems reviewed except as stated in history of present illness. Of note, he did have an ultrasound Doppler of the left lower extremity that showed partial thrombus of the left common femoral vein. PHYSICAL EXAMINATION: VITAL SIGNS: Temperature 97.4, pulse 95, blood pressure 134/78. GENERAL: He is in no acute distress. He is alert and oriented x3. HEENT: Eyes have no scleral icterus. Oropharynx is clear without lesions. No cervical or supraclavicular lymphadenopathy. He has muscle wasting. LUNGS: Clear to auscultation bilaterally. HEART: Regular rate and rhythm without murmur. ABDOMEN: Soft, tender in the left side of the abdomen without guarding. Bowel sounds are present. EXTREMITIES: No lower extremity edema. LABORATORY DATA: White blood cell count 9.8, hemoglobin 8.7, platelets 599. INR 1.1. Creatinine 0.59. Iron 17, ferritin 666, albumin 2.7, bilirubin 0.5, AST 16, ALT 24, and alkaline phosphatase 292. IMPRESSION: 1. Inflammatory mesenteric mass with adjacent colon thickening and thickening of the terminal ileum. The mass is causing obstruction of the left ureter. This is also associated with a left psoas abscess and paraspinous abscess. The paraspinous abscess was aspirated by CT guidance today. Question is whether or not the abscess and inflammatory changes of the bowel and mesentery could be secondary to Crohn disease. Malignancy is still being considered as a possibility as well. Primary infectious process originating with diverticulitis has been also considered. We will plan for colonoscopy to evaluate for evidence of Crohn disease. He did just have a colonoscopy when he originally presented to the hospital in [place], but it sounds like the focus was to evaluate for a colon mass and it is not clear that the terminal ileum was evaluated at that time. We will request that record. 2. Anemia, most likely secondary to anemia of chronic disease. 3. Deep venous thrombosis of the left femoral vein. He is on Lovenox. This can be held prior to colonoscopy. 4. Obstruction of the left ureter status post stent placement in [place]. RECOMMENDATIONS: 1. Request previous colonoscopy report. 2. We will plan for colonoscopy with goal to evaluate the terminal ileum for evidence of Crohn disease. 3. Await culture results from the abscess aspiration. He remains on antibiotics. 4. We will need to hold the heparin or Lovenox prior to the colonoscopy. Job ID: [id number]
[2018-12-21] MEDS ORDERED: Promethazine 25 MG TAB PO PRN (21:58)
[2018-12-21] MEDS ORDERED: Promethazine 25 MG TAB PO SCH (22:00)
[2018-12-21] MEDS ORDERED: Bisacodyl 10 MG SUPP PR SCH (22:00)
[2018-12-21] MEDS: Metoclopramide HCl 10 MG/2 ML VIAL IVP SCH (22:10)
[2018-12-22] MEDS: Vancomycin HCl 750 MG in Sodium Chloride 0.9% 250 ML 250 ML IVPB SCH ×4 (00:04→23:11)
[2018-12-22] MEDS: metroNIDAZOLE 500 MG in Premix Bag 1 BAG IVPB SCH ×3 (01:13→17:26)
[2018-12-22] MEDS: Metoclopramide HCl 10 MG/2 ML VIAL IVP SCH ×4 (04:07→23:11)
[2018-12-22] MEDS: Morphine 4 MG/ML VIAL SLOW IVP PRN (06:10)
--- NOTE | 2018-12-22 07:28 | PDOC.PN ---
- Subjective Encounter Start Date: 12/22/18 Encounter Start Time: 09:30 Subjective: Patient with decreased abdominal pain. No fever. Taking Golytely but -: not much down yet. Colonoscopy rescheduled for tomorrow. - Objective Resuscitation Status - Order Detail: 12/19/18 17:47 Resuscitation Status Routine Resuscitation Status: FULL: Full Resuscitation MAR Reviewed: Yes Vital Signs & Weight: Vital Signs (12 hours) Temp Pulse Resp BP Pulse Ox 12/22/18 03:25 98.2 F 94 18 143/80 H 93 L 12/21/18 19:30 98.3 F 83 18 125/73 94 L Weight Admit Weight 117 lb 14.4 oz Weight 117 lb 6.4 oz I&O: 12/21/18 12/22/18 12/23/18 06:59 06:59 06:59 Intake Total 660 960 Balance 660 960 Result Diagrams: 12/22/18 14:51 12/21/18 04:06 Phys Exam - Physical Examination Constitutional: NAD HEENT: moist MMs Respiratory: no wheezing, no rales, no rhonchi Cardiovascular: RRR, no significant murmur Gastrointestinal: soft, positive bowel sounds Neurological: non-focal, moves all 4 limbs Psychiatric: normal affect, A&O x 3 Dx/Plan (1) Psoas abscess, left Code(s): K68.12 - PSOAS MUSCLE ABSCESS Status: Acute Comment: on Levaquin, Metronidazole, and Vancomycin since 12/19/2018, Dr. Cornelius and Dr. Horn consulted, Dr. Horn concerned about cancer, needle aspiration done and culture pending, Dr. Ma consulted for colonoscopy to explore the possibility of Crohn 's disease. (2) Ureteral obstruction, left Code(s): N13.5 - CROSSING VESSEL AND STRICTURE OF URETER W/O HYDRONEPHROSIS Status: Acute Comment: s/p stent placement in [place], urology evaluated, recommends leaving stent as is for now (3) Anemia Code(s): D64.9 - ANEMIA, UNSPECIFIED Status: Acute Comment: likely due to chronic disease as well as urinary or GI blood loss (4) Hyponatremia Code(s): E87.1 - HYPO-OSMOLALITY AND HYPONATREMIA Status: Acute Comment: mild, observe (5) Hypokalemia Code(s): E87.6 - HYPOKALEMIA Status: Resolved (6) Tobacco abuse Code(s): Z72.0 - TOBACCO USE Status: Acute (7) Deep venous thrombosis of left femoral vein Code(s): I82.412 - ACUTE EMBOLISM AND THROMBOSIS OF LEFT FEMORAL VEIN Status: Acute Qualifiers: Chronicity: acute Qualified Code(s): I82.412 - Acute embolism and thrombosis of left femoral vein Comment: on full dose Lovenox - Plan cont current plan of care, continue antibiotics, out of bed/ambulate, DVT proph w/lovenox * . - Discharge Day Encounter end time: 09:40
[2018-12-22] MEDS: Enoxaparin Sodium 60 MG/0.6 ML SYRINGE SC SCH ×2 (08:31→20:49)
[2018-12-22] MEDS: Senokot S 8.6-50 MG TAB PO SCH ×2 (08:32→20:49)
[2018-12-22 13:47] VITALS: BMI 17.3
[2018-12-22 15:07] LABS: Hemoglobin 8.4 g/dL (14.0-18.0); Platelet Count 549 thou/uL (130-400)
--- NOTE | 2018-12-22 15:19 | PRG ---
DATE OF SERVICE: 12/22/2018 SUBJECTIVE: Mr. Andre is slowly taking his bowel prep. He has finished about half of it. He is not having much stool output with it. OBJECTIVE: VITAL SIGNS: Temperature 97.7, pulse 99, blood pressure 157/84. GENERAL: He is in no acute distress. Alert and oriented x3. LUNGS: Clear to auscultation bilaterally. HEART: Regular rate and rhythm without murmur. ABDOMEN: Soft. Mild tenderness in the left lower abdomen. This is less so than yesterday. EXTREMITIES: No lower extremity edema. IMPRESSION: Inflammatory mesenteric mass near the sigmoid colon. This caused stricturing of the sigmoid colon noted by a colonoscopy in [place] last month. However, there is no mucosal defect associated with that. The question is whether or not there is an external compression from a neoplastic process versus an inflammatory process such as Crohn disease versus diverticulitis. On review of CT, the terminal ileum appears to abut the inflamed area and could also be a source for the paraspinous and psoas abscesses. The question is whether or not he has Crohn's. Colonoscopy in [place] was only completed to the ascending colon and the preparation quality was poor. At this point, we will try to get an inadequate bowel prep and then do colonoscopy once we have achieved good bowel prep with the goal to reach the terminal ileum. RECOMMENDATIONS: 1. Continue the bowel prep today. 2. He is on for colonoscopy for tomorrow morning. If he is unable to complete the prep, then we can delay the colonoscopy further until he is able to finish the bowel prep and his stools are clear. Job ID: [id number]
[2018-12-22] MEDS: Acetaminophen 325 MG TAB PO PRN (17:08)
--- NOTE | 2018-12-22 17:08 | PRG ---
DATE OF SERVICE: 12/22/2018 The patient was seen on morning rounds. He was drinking his bowel prep and plans for his colonoscopy today. He did undergo successful aspiration of the psoas abscess yesterday with removal of a large amount of murky fluid. At the time that I rounded, cytology and microbiology were still pending. We will await these results. Dr. River is going to be assuming the patient's care since I am going out of town for a week. Clinically, however, he is stable. Job ID: [id number]
[2018-12-23] MEDS: Acetaminophen 325 MG TAB PO PRN ×2 (00:42→16:46)
[2018-12-23] MEDS: metroNIDAZOLE 500 MG in Premix Bag 1 BAG IVPB SCH ×3 (01:19→17:22)
[2018-12-23] MEDS: Metoclopramide HCl 10 MG/2 ML VIAL IVP SCH ×4 (05:42→20:43)
[2018-12-23 06:25] LABS: #Lymphocytes 0.6 thou/uL (1.20-3.40); #Monocytes 0.5 thou/uL (0.11-0.59); #Neutrophils 8.7 thou/uL (1.40-6.50); %Basophils 0.1 % (0.0-1.0); %Eosinophils 0.2 % (0.0-10.0); %Lymphocytes 6.3 % (21.0-51.0); %Monocytes 5.3 % (0.0-10.0); %Neutrophils 88.1 % (42.0-75.0); Hemoglobin 9.1 g/dL (14.0-18.0); Mean Corpuscular HGB CONC 31.3 g/dL (32.0-36.0); Mean Corpuscular Hemoglobin 25.9 pg (27.0-31.0); Mean Corpuscular Volume 82.7 fL (78.0-98.0); Mean Platelet Volume 5.8 fL (7.4-10.4); Platelet Count 664 thou/uL (130-400); RBC Distribution Width 14.6 % (11.5-14.5); White Blood Cell (WBC) Count 9.9 thou/uL (4.8-10.8)
[2018-12-23 06:41] LABS: Anion Gap 14 mmol/L (10-20); BUN (Urea Nitrogen) 6 mg/dL (8.4-25.7); Calc. Creatinine Clearance 93 mL/min (70-130); Calcium 8.6 mg/dL (7.8-10.44); Carbon Dioxide 27 mmol/L (23-31); Chloride 98 mmol/L (98-107); Estimated GFR-MDRD Greater than 90; Glucose 84 mg/dL (80-115); Sodium 136 mmol/L (136-145)
--- NOTE | 2018-12-23 07:51 | PDOC.PN ---
- Subjective Encounter Start Date: 12/23/18 Encounter Start Time: 09:40 Subjective: Patient unable to complete colonscopy this AM due to still with -: stool in sigmoid. Will continue prep and try again tomorrow. Abd pain -: unchanged. No fever. No N/V. - Objective Resuscitation Status - Order Detail: 12/19/18 17:47 Resuscitation Status Routine Resuscitation Status: FULL: Full Resuscitation MAR Reviewed: Yes Vital Signs & Weight: Vital Signs (12 hours) Temp Pulse Resp BP Pulse Ox 12/23/18 07:09 97.9 F 96 17 132/72 96 12/23/18 03:45 97.3 F L 87 18 139/79 94 L 12/22/18 20:00 93 L Weight Admit Weight 117 lb 14.4 oz Weight 117 lb 6.4 oz I&O: 12/22/18 12/23/18 12/24/18 06:59 06:59 06:59 Intake Total 960 2690 Output Total 50 Balance 960 2640 Result Diagrams: 12/23/18 05:32 12/23/18 05:32 Phys Exam - Physical Examination Constitutional: NAD HEENT: moist MMs Respiratory: no wheezing, no rales, no rhonchi Cardiovascular: RRR, no significant murmur Gastrointestinal: soft, no distention, positive bowel sounds TTP LLQ/LUQ Neurological: non-focal, moves all 4 limbs Psychiatric: normal affect, A&O x 3 Dx/Plan (1) Psoas abscess, left Code(s): K68.12 - PSOAS MUSCLE ABSCESS Status: Acute Comment: on Levaquin, Metronidazole, and Vancomycin since 12/19/2018, Dr. Cornelius and Dr. Horn consulted, Dr. Horn concerned about cancer, needle aspiration done and culture pending, Dr. Ma consulted for colonoscopy to explore the possibility of Crohn 's disease. (2) Ureteral obstruction, left Code(s): N13.5 - CROSSING VESSEL AND STRICTURE OF URETER W/O HYDRONEPHROSIS Status: Acute Comment: s/p stent placement in [place], urology evaluated, recommends leaving stent as is for now (3) Anemia Code(s): D64.9 - ANEMIA, UNSPECIFIED Status: Acute Comment: likely due to chronic disease as well as urinary or GI blood loss (4) Hyponatremia Code(s): E87.1 - HYPO-OSMOLALITY AND HYPONATREMIA Status: Resolved Comment: mild, observe (5) Hypokalemia Code(s): E87.6 - HYPOKALEMIA Status: Acute Comment: replete (6) Tobacco abuse Code(s): Z72.0 - TOBACCO USE Status: Acute (7) Deep venous thrombosis of left femoral vein Code(s): I82.412 - ACUTE EMBOLISM AND THROMBOSIS OF LEFT FEMORAL VEIN Status: Acute Qualifiers: Chronicity: acute Qualified Code(s): I82.412 - Acute embolism and thrombosis of left femoral vein Comment: on full dose Lovenox - Plan cont current plan of care, continue antibiotics, DVT proph w/lovenox Try colonoscopy again tomorrow. Otherwise will probably need surgery. * . - Discharge Day Encounter end time: 09:50
[2018-12-23] MEDS ORDERED: Potassium Chloride 20 MEQ/100 ML PREMIX BAG IVPB SCH (08:00)
--- NOTE | 2018-12-23 09:16 | PRG ---
DATE OF SERVICE: 12/23/2018 SUBJECTIVE: Mr. Andre is hospital day #5 after he is hospitalized with question of mesenteric mass, psoas abscess, and prevertebral abscess. He is currently in the Day Surgery area preparing for colonoscopy per Dr. Coats. He tells me that he denies any abdominal discomfort and he still notes discomfort along his left flank going down to his left leg. He notes that this is the site of his ureteral stent. He tells me he tolerated his entire prep yesterday without vomiting. OBJECTIVE: VITAL SIGNS: On examination, he is afebrile with temperature 97.9, pulse is 96, and blood pressure 132/72. He has been afebrile during his entire hospitalization. He was initially tachycardic over 100, but this is resolved. LUNGS: Clear to auscultation anteriorly. He has some mild wheezing. CARDIAC: Regular rate and rhythm. ABDOMEN: Mildly protuberant but soft with normoactive bowel sounds. There is no definite mass that I can discern. LABORATORY DATA: CBC from today reveals a hemoglobin level of 9.1. This is stable for him. White blood cell count is 9.9, which is also stable. He has a left shift with 88% neutrophils. Platelet count is elevated at 664. His chemistries reveal normal sodium and chloride. His potassium is low at 3.0. BUN and creatinine are low. His culture results from his psoas aspiration the day before yesterday are still pending. The Gram stain did reveal moderate gram-positive rods. ASSESSMENT: The patient is stable, but still has undiagnosed problems leading to a 25 pounds weight loss, ureteral blockage, psoas abscess, and mesenteric mass. They are concerned that this could be some form of malignancy versus Crohn disease versus an unspecified infectious disease. He remains on IV antibiotics, receiving Levaquin and Flagyl. He is still getting Lovenox for partial thrombosis of his left common femoral vein. He is having a colonoscopy today. Depending upon findings with colonoscopy, question would be whether he requires some form of abdominal surgery to address the etiology of this problem. This is in fact Crohn's, decision would need to be made whether this can be managed medically or whether he will require surgical intervention. I will touch base with Dr. Coats after he has performed a colonoscopy today. Job ID: [id number]
--- NOTE | 2018-12-23 10:51 | OP ---
DATE OF PROCEDURE: 12/23/2018 LEASING COORDINATOR SURGEON: None. PROCEDURE PERFORMED: Colonoscopy, incomplete. INDICATIONS: 1. Abdominal mass with abscess. 2. Evaluate for possible evidence of Crohn disease versus malignancy. MEDICATIONS: See Anesthesia record. FINDINGS: After discussion of the risks, benefits, and alternatives of the procedure, informed consent was obtained and witnessed. Pre-endoscopic cardiopulmonary examination was satisfactory. Time-out was performed before sedation was achieved. Sedation was achieved with Anesthesia assistance in the endoscopy unit. Digital rectal exam demonstrated some small external hemorrhoids. A Pentax adult colonoscope was inserted into the anus and passed forward in the usual fashion. There was a significant amount of solid stool seen in the rectum and at the sigmoid colon. This did interfere with visualization of the mucosa. There was an approximately 8 mm rectal polyp, which was not snared. In the sigmoid colon, at about 20 cm, there was significant edema and tortuosity of the colon. There was also a large amount of solid stool in this area. Where the mucosa was visualized, there was a bluish discoloration, which might represent previous tattoo placement, or alternatively might represent extrinsic compression of the colon. Due to the tortuosity and edema as well as a large amount of stool in the area, I was unable to advance beyond 20 cm. At this point, the colonoscope was completely withdrawn and the patient allowed to recover. The patient tolerated the procedure well. There were no immediate postprocedure complications. IMPRESSION: 1. Stool in the rectum and sigmoid colon, interfering with visualization. 2. Edema and tortuosity of the sigmoid colon, unable to advance the endoscope beyond 20 cm. 3. Blue mucosal discoloration at 20 cm, representing prior tattoo placement versus extrinsic compression. RECOMMENDATION: I discussed the case with Dr. River. We will try a colonoscopy again tomorrow after repeat bowel prep this evening. If unable to complete colonoscopy tomorrow, the patient may end up needing exploratory surgery. Job ID: [id number]
[2018-12-23] MEDS ORDERED: GoLYTELY 4,000 ml Bottle PO SCH (11:04)
[2018-12-23] MEDS: Vancomycin HCl 750 MG in Sodium Chloride 0.9% 250 ML 250 ML IVPB SCH ×2 (11:07→15:24)
[2018-12-23] MEDS: Senokot S 8.6-50 MG TAB PO SCH ×2 (11:09→20:42)
[2018-12-23] MEDS: Enoxaparin Sodium 60 MG/0.6 ML SYRINGE SC SCH ×2 (11:09→20:41)
[2018-12-23] MEDS ORDERED: PROPOFOL 200 MG/20 ML VIAL ONE (15:00)
[2018-12-23 15:12] LABS: Vancomycin, Trough 21.5 ug/mL
[2018-12-23] MEDS ORDERED: Vancomycin HCl 500 MG in Sodium Chloride 0.9% 100 ML IVPB SCH (16:00)
--- NOTE | 2018-12-23 19:07 | PRG ---
DATE OF SERVICE: 12/23/2018 SUBJECTIVE: No headaches. No shortness of breath or cough. Minor abdominal pain. Had a colonoscopy, but the prep did work well and will probably have to be repeated tomorrow. There is also a lot of tortuosity of the rectosigmoid. OBJECTIVE: VITAL SIGNS: T-max 99.2. He has been afebrile since. BP 150/86. GENERAL: Awake, alert, and oriented. LUNGS: Clear. HEART: S1 and S2, regular rate. ABDOMEN: Soft, not distended or tender. LABORATORY DATA: White cell count 9.9, hemoglobin 9.1, platelets 664 with 88% neutrophils. Creatinine 0.61. Microbiology from the percutaneous aspirate shows a Streptococcus anginosus group and pathology consistent with an abscess. ASSESSMENT AND DISCUSSION: Chronic smoking, pain, left flank and back; mild neutrophilia with thrombocytosis and retroperitoneal abscess, deep venous thrombosis in left lower extremity. The patient is going to have an attempted or repeat colonoscopy, if that fails, then will need exploratory laparotomy or laparoscopy. Discontinue levofloxacin. Switch him to Rocephin and continue metronidazole. Discontinue vancomycin. Job ID: [id number]
[2018-12-23] MEDS: cefTRIAXone\\ROCEPHIN 2 GM in Sodium Chloride 0.9% 100 ML IVPB SCH (20:40)
[2018-12-24] MEDS: metroNIDAZOLE 500 MG in Premix Bag 1 BAG IVPB SCH ×3 (02:35→19:25)
[2018-12-24] MEDS: Acetaminophen 325 MG TAB PO PRN (02:35)
[2018-12-24] MEDS: Metoclopramide HCl 10 MG/2 ML VIAL IVP SCH ×4 (05:21→22:16)
[2018-12-24 06:43] LABS: Anion Gap 18 mmol/L (10-20); BUN (Urea Nitrogen) 5 mg/dL (8.4-25.7); Calc. Creatinine Clearance 97 mL/min (70-130); Calcium 8.3 mg/dL (7.8-10.44); Carbon Dioxide 26 mmol/L (23-31); Chloride 96 mmol/L (98-107); Estimated GFR-MDRD Greater than 90; Glucose 63 mg/dL (80-115); Sodium 137 mmol/L (136-145)
[2018-12-24 06:47] LABS: Potassium 2.8 mmol/L (3.5-5.1)
[2018-12-24] MEDS: Senokot S 8.6-50 MG TAB PO SCH ×2 (09:06→22:16)
[2018-12-24] MEDS: Enoxaparin Sodium 60 MG/0.6 ML SYRINGE SC SCH ×2 (09:06→22:16)
[2018-12-24] MEDS: Potassium Chloride 20 MEQ TAB PO SCH ×2 (09:08→11:21)
[2018-12-24 09:12] LABS: Magnesium 1.4 mg/dL (1.6-2.6); Phosphorus 3.7 mg/dL (2.3-4.7)
--- NOTE | 2018-12-24 13:35 | PRG ---
DATE OF SERVICE: 12/24/2018 SUBJECTIVE: The patient is afebrile. His vital signs are for the most part stable. His blood pressure is fine. His pulse is still little bit up. He is not having any complaints with urination. He has not developed any significant problems or gross hematuria. He is currently on Rocephin and Flagyl. His vancomycin has been discontinued. His culture had grown out a Strep species. He is to have another colonoscopy today. Hopefully, his repeat prep is worked. For right now, we are going to leave this ureteral stent in until we know as best as we can watch more along with him and we will make an attempt to remove the stent at that time and see if he does even needed any more. His urine culture was negative. Dr. Andres is available this weekend should urology be required. Otherwise, I will recheck on him Thursday. Job ID: [id number]
[2018-12-24 15:40] LABS: Hemoglobin 10.2 g/dL (14.0-18.0); Platelet Count 820 thou/uL (130-400)
[2018-12-24] MEDS ORDERED: Promethazine HCl 25 MG/ML VIAL IM PRN (16:38)
[2018-12-24] MEDS ORDERED: Promethazine HCl 25 MG/ML VIAL SLOW IVP PRN (16:38)
[2018-12-24] MEDS ORDERED: Ondansetron HCl/PF 4 MG/2 ML Vial IVP PRN (16:38)
[2018-12-24] MEDS ORDERED: PROPOFOL 200 MG/20 ML VIAL ONE (17:25)
[2018-12-24] MEDS ORDERED: Lidocaine 1% PF 5 ML VIAL ONE (17:25)
--- NOTE | 2018-12-24 20:54 | PRG ---
DATE OF SERVICE: 12/24/2018 SUBJECTIVE: Mr. Andre was examined in Day Surgery while he was awaiting his second colonoscopy. He had a colonoscopy yesterday, but the colonoscopy was unable to be completed secondary to sigmoid colon abnormalities. The patient was noted to have abundant formed stool in his colon in spite of a full bowel prep. He also had abnormal edematous thickened tissue in the sigmoid colon what appeared to be twisting. The patient has undergone further bowel prep over night and was to have a second colonoscopy today. I spoke with Dr. Coats regarding his findings. Dr. Coats notes that although he was unable to traverse the area of abnormality in the sigmoid colon with the typical colonoscope, he was able to traverse this area with a gastroscope. He was able to see most of the colon, although there was still a very inadequate prep in spite of 2 days of bowel prep. Dr. Coats also reports that the area in the sigmoid colon was still very thickened and abnormal, but there was no apparent intraluminal mass as the source of his problem. The patient does tell me that he is hungry and has not eaten anything substantial in the last several days. OBJECTIVE: VITAL SIGNS: He is afebrile. Pulse is in the upper 90s. Blood pressure is 160/95. LUNGS: Clear to auscultation. ABDOMEN: Protuberant, but soft and nontender. EXTREMITIES: Unremarkable. He does have a recent history of partial thrombosis in his left leg. LABORATORY DATA: Hemoglobin from today is stable at 10.2. His white blood cell count yesterday was 9.9 with 88% neutrophils. Chemistry panel revealed hypokalemia this morning with a potassium of 2.8. Culture, the aspiration from his psoas abscess revealed Streptococcus anginosus with no other organisms seen thus far. ASSESSMENT: The patient who has undergone evaluation by General Surgery, Gastroenterology, Urology, Infectious Disease. He has undergone several imaging studies and attempts a diagnosis with colonoscopy. Unfortunately, none of these have led to a diagnosis. 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 He has abnormality within the sigmoid colon, seen both on CT scan and endoscopy. There may be an abnormality with this small bowel as well, but it is difficult to discern. He also had hydroureter and hydronephrosis related to mesenteric mass, possibly related to the sigmoid colon or small bowel. In summary, we still do not have a diagnosis for what is causing his weight loss and his symptoms and the findings on imaging studies. At this point, I believe he will require exploratory laparotomy to discern exactly what is causing this. I will plan to proceed with this on Thursday and he has already been scheduled for this. He will have to undergo a bowel prep on Thursday with both mechanical prep with GoLYTELY as well as antibiotic prep. I would tentatively plan on proceeding with a sigmoid colectomy, probably with primary colonic anastomosis. I will evaluate the mesenteric abnormality as well as small bowel. He may require small bowel resection. Anything abnormal will certainly be biopsied to be able to obtain a diagnosis. I discussed this in detail with the patient and his family. I have also discussed this thoroughly with Dr. Coats. All are in agreement. He has been scheduled for his laparotomy on Thursday. Job ID: [id number]
[2018-12-24] MEDS: cefTRIAXone\\ROCEPHIN 2 GM in Sodium Chloride 0.9% 100 ML IVPB SCH (22:17)
--- NOTE | 2018-12-24 22:25 | OP ---
DATE OF PROCEDURE: 12/24/2018 SKIING INSTRUCTOR SURGEON: None. PROCEDURE PERFORMED: Colonoscopy, incomplete. INDICATIONS: 1. Mesenteric mass. 2. Abdominal abscesses. 3. Concern for possible Crohn disease versus malignant process or diverticulitis. MEDICATIONS: See Anesthesia record. FINDINGS: After discussion of the risks, benefits, and alternatives of the procedure, informed consent was obtained and witnessed. Pre-endoscopic cardiopulmonary examination was satisfactory. Time-out was performed before sedation was achieved. Sedation was achieved with anesthesia assistance in the endoscopy unit. Digital rectal exam was performed, which showed some external hemorrhoids. A Pentax adult colonoscope was inserted into the anus and passed forward in the usual fashion. There is a moderate amount of semi-liquid and semi-solid stool within the rectum and the sigmoid colon interfering with visualization, but much better than yesterday. There were 2 polyps within the sigmoid colon measuring 1 cm or less. These were sessile. Do not appear malignant. The polyps were not snared on today's examination. Again, at 20 cm from the anal verge, there was significant mucosal edema and blue discoloration as well as tortuosity of the sigmoid colon. This made advancement of the colonoscope beyond 25 cm very difficult, and in fact, I was unable to advance the colonoscope beyond the distance of 25 cm from the anal verge. At this point, I removed the colonoscope and we used an adult upper endoscope to try to get past this area. With the upper endoscope, I was able to get past this severely edematous area of the sigmoid colon. I passed the endoscope as far as I could until it was held, at a distance of 100 cm. Unfortunately, with this endoscope, I was only able to reach what I estimate to be the proximal to mid transverse colon. I was unable to visualize the cecum or the appendiceal orifice. I was certainly not able to reach the terminal ileum. Notably, the quality of the prep proximal to the sigmoid colon remained poor with a large amount of semi-solid and semi-liquid stool taking up much of the colonic lumen. Where visualized, the colonic mucosa appeared normal in the transverse colon and descending colon. On careful examination of the sigmoid colon, again I visualized severely edematous and bluish discolored mucosa for about 10 cm of length of the sigmoid colon. I felt this likely represented an area of extrinsic compression. I removed the upper endoscope and again tried with the colonoscope to past beyond this narrow area in the sigmoid colon. However, despite multiple attempts, I was ultimately unsuccessful. The colonoscope was completely withdrawn and the patient allowed to recover. The patient tolerated the procedure well. There were no immediate postprocedure complications. IMPRESSION: 1. Edematous tortuous sigmoid colon with blue discoloration, likely signifying extrinsic compression. 2. Two sigmoid polyps, not removed on this exam. 3. Poor bowel preparation. 4. Unable to reach beyond the mid transverse colon, so unable to examine the hepatic flexure, ascending colon, cecum, or terminal ileum. RECOMMENDATION: I think the patient is likely going to require exploratory laparotomy with at least sigmoidectomy. Unfortunately, endoscopic examination of the terminal ileum is not going to be feasible preoperatively. We will discuss the situation with Dr. River. Job ID: [id number]
[2018-12-25] MEDS: Metoclopramide HCl 10 MG/2 ML VIAL IVP SCH ×4 (03:07→22:23)
[2018-12-25] MEDS: metroNIDAZOLE 500 MG in Premix Bag 1 BAG IVPB SCH ×3 (03:07→17:16)
[2018-12-25] MEDS: Acetaminophen 325 MG TAB PO PRN ×3 (03:08→20:37)
[2018-12-25] MEDS ORDERED: Potassium Chloride 20 MEQ TAB PO SCH (09:00)
[2018-12-25] MEDS: Senokot S 8.6-50 MG TAB PO SCH ×2 (09:33→20:38)
[2018-12-25] MEDS: Enoxaparin Sodium 60 MG/0.6 ML SYRINGE SC SCH ×2 (09:34→20:38)
[2018-12-25] MEDS: Potassium Chloride 10 MEQ in Premix Bag 1 BAG IVPB SCH ×3 (10:32→12:58)
--- NOTE | 2018-12-25 13:55 | PDOC.PN ---
- Subjective Encounter Start Date: 12/25/18 Encounter Start Time: 10:30 Subjective: pt up in bed complains of lower abd pain - Objective Resuscitation Status - Order Detail: 12/19/18 17:47 Resuscitation Status Routine Resuscitation Status: FULL: Full Resuscitation Vital Signs & Weight: Vital Signs (12 hours) Temp Pulse Resp BP Pulse Ox 12/25/18 11:37 97.6 F 86 16 114/81 91 L 12/25/18 09:34 94 L 12/25/18 08:00 97.7 F 100 16 149/82 H 94 L 12/25/18 04:32 98.3 F 99 16 142/74 H 95 Weight Admit Weight 117 lb 14.4 oz Weight 117 lb 6.4 oz I&O: 12/24/18 12/25/18 12/26/18 06:59 06:59 06:59 Intake Total 2200 700 Output Total 154 650 Balance 2046 50 Result Diagrams: 12/24/18 15:31 12/24/18 05:40 Phys Exam - Physical Examination Respiratory: no wheezing, no rales, no rhonchi, wheezing present, clear to auscultation bilateral Cardiovascular: RRR, no significant murmur, no rub, gallop, irregular Gastrointestinal: soft, non-tender, no distention, positive bowel sounds Musculoskeletal: no edema, pulses present, edema present Dx/Plan (1) Deep venous thrombosis of left femoral vein Code(s): I82.412 - ACUTE EMBOLISM AND THROMBOSIS OF LEFT FEMORAL VEIN Status: Acute Qualifiers: Chronicity: acute Qualified Code(s): I82.412 - Acute embolism and thrombosis of left femoral vein Comment: on full dose Lovenox (2) Ureteral obstruction, left Code(s): N13.5 - CROSSING VESSEL AND STRICTURE OF URETER W/O HYDRONEPHROSIS Status: Acute Comment: s/p stent placement in [place], urology evaluated, recommends leaving stent as is for now (3) Mesenteric mass Code(s): K63.9 - DISEASE OF INTESTINE, UNSPECIFIED Status: Acute (4) Psoas abscess, left Code(s): K68.12 - PSOAS MUSCLE ABSCESS Status: Acute Comment: on Levaquin, Metronidazole, and Vancomycin since 12/19/2018, Dr. Cornelius and Dr. Horn consulted, Dr. Horn concerned about cancer, needle aspiration done and culture pending, Dr. Ma consulted for colonoscopy to explore the possibility of Crohn 's disease. - Plan attempted colonosocpy without success, pt to go for exp lap on thursday -: will continue lovonox for dvt -: continue abx for now * . Review of Systems - Review of Systems Respiratory: negative: Cough, Dry, Shortness of Breath, Hemoptysis, SOB with Excertion, Pleuritic Pain, Sputum, Wheezing Cardiovascular: negative: chest pain, palpitations, orthopnea, paroxysmal nocturnal dyspnea, edema, light headedness, other Gastrointestinal: negative: Nausea, Vomiting, Abdominal Pain, Diarrhea, Constipation, Melena, Hematochezia, Other - Medications/Allergies Allergies/Adverse Reactions: Allergies Allergy/AdvReac Type Severity Reaction Status Date / Time Penicillins Allergy Verified 12/19/18 15:48 Medications: Current Medications Acetaminophen (Tylenol) 650 mg PO Q4H PRN PRN Reason: Headache/Fever/Mild Pain (1-3) Last Admin: 12/25/18 03:08 Dose: 650 mg Enoxaparin Sodium (Lovenox) 50 mg SC 0900,2100 [facility] Last Admin: 12/25/18 09:34 Dose: 50 mg Erythromycin (Erythromycin Base) 1,000 mg PO 1000,1300,2000 [facility] Stop: 12/26/18 20:01 Metronidazole 500 mg/ Device 100 mls @ 100 mls/hr IVPB 0200,1000,1800 [facility] Last Admin: 12/25/18 09:35 Dose: 100 mls Ceftriaxone Sodium 2 gm/ (Sodium Chloride) 100 mls @ 200 mls/hr IVPB Q24HR [facility] Last Admin: 12/24/18 22:17 Dose: 100 mls Lactulose (Lactulose) 20 gm PO DAILYPRN PRN PRN Reason: Constipation Metoclopramide HCl (Reglan) 10 mg IVP 0400,1000,1600,2200 [facility] Last Admin: 12/25/18 09:34 Dose: 10 mg Morphine Sulfate (Morphine) 4 mg SLOW IVP Q4H PRN PRN Reason: Moderate Pain (4-6) Last Admin: 12/22/18 06:10 Dose: 4 mg Neomycin Sulfate (Neomycin Sulfate) 1,000 mg PO 1000,1300,2000 [facility] Stop: 12/26/18 20:01 Polyethylene Glycol (Miralax) 17 gm PO DAILYPRN PRN PRN Reason: Constipation Polyethylene Glycol/Electrolytes (Golytely) 4,000 ml PO 1000 [facility] Stop: 12/26/18 23:59 Promethazine HCl (Phenergan) 12.5 mg PO Q4H PRN PRN Reason: Nausea Senna/Docusate Sodium (Senokot S) 1 tab PO BID [facility] Last Admin: 12/25/18 09:33 Dose: 1 tab Sodium Chloride (Flush - Normal Saline) 10 ml IVF Q12HR [facility] Last Admin: 12/25/18 09:34 Dose: 10 ml Sodium Chloride (Flush - Normal Saline) 10 ml IVF PRN PRN PRN Reason: Saline Flush Last Admin: 12/21/18 12:34 Dose: 10 ml
--- NOTE | 2018-12-25 14:08 | PDOC.PN ---
- Subjective Encounter Start Date: 12/24/18 Encounter Start Time: 10:30 Subjective: pt up in bed no complains - Objective Resuscitation Status - Order Detail: 12/19/18 17:47 Resuscitation Status Routine Resuscitation Status: FULL: Full Resuscitation Vital Signs & Weight: Vital Signs (12 hours) Temp Pulse Resp BP Pulse Ox 12/25/18 11:37 97.6 F 86 16 114/81 91 L 12/25/18 09:34 94 L 12/25/18 08:00 97.7 F 100 16 149/82 H 94 L 12/25/18 04:32 98.3 F 99 16 142/74 H 95 Weight Admit Weight 117 lb 14.4 oz Weight 117 lb 6.4 oz I&O: 12/24/18 12/25/18 12/26/18 06:59 06:59 06:59 Intake Total 2200 700 Output Total 154 650 Balance 2046 50 Result Diagrams: 12/24/18 15:31 12/24/18 05:40 Phys Exam - Physical Examination Respiratory: no wheezing, no rales, no rhonchi, wheezing present, clear to auscultation bilateral Cardiovascular: RRR, no significant murmur, no rub, gallop, irregular Gastrointestinal: soft, non-tender, no distention, positive bowel sounds Musculoskeletal: no edema, pulses present, edema present Dx/Plan (1) Deep venous thrombosis of left femoral vein Code(s): I82.412 - ACUTE EMBOLISM AND THROMBOSIS OF LEFT FEMORAL VEIN Status: Acute Qualifiers: Chronicity: acute Qualified Code(s): I82.412 - Acute embolism and thrombosis of left femoral vein Comment: on full dose Lovenox (2) Ureteral obstruction, left Code(s): N13.5 - CROSSING VESSEL AND STRICTURE OF URETER W/O HYDRONEPHROSIS Status: Acute Comment: s/p stent placement in [place], urology evaluated, recommends leaving stent as is for now (3) Mesenteric mass Code(s): K63.9 - DISEASE OF INTESTINE, UNSPECIFIED Status: Acute (4) Psoas abscess, left Code(s): K68.12 - PSOAS MUSCLE ABSCESS Status: Acute Comment: on Levaquin, Metronidazole, and Vancomycin since 12/19/2018, Dr. Cornelius and Dr. Horn consulted, Dr. Horn concerned about cancer, needle aspiration done and culture pending, Dr. Ma consulted for colonoscopy to explore the possibility of Crohn 's disease. - Plan pt getting ready to go for a colonoscopy -: will continue abx. -: will replace K * . Review of Systems - Review of Systems Respiratory: negative: Cough, Dry, Shortness of Breath, Hemoptysis, SOB with Excertion, Pleuritic Pain, Sputum, Wheezing Cardiovascular: negative: chest pain, palpitations, orthopnea, paroxysmal nocturnal dyspnea, edema, light headedness, other Gastrointestinal: negative: Nausea, Vomiting, Abdominal Pain, Diarrhea, Constipation, Melena, Hematochezia, Other - Medications/Allergies Allergies/Adverse Reactions: Allergies Allergy/AdvReac Type Severity Reaction Status Date / Time Penicillins Allergy Verified 12/19/18 15:48 Medications: Current Medications Acetaminophen (Tylenol) 650 mg PO Q4H PRN PRN Reason: Headache/Fever/Mild Pain (1-3) Last Admin: 12/25/18 03:08 Dose: 650 mg Enoxaparin Sodium (Lovenox) 50 mg SC 0900,2100 [facility] Last Admin: 12/25/18 09:34 Dose: 50 mg Erythromycin (Erythromycin Base) 1,000 mg PO 1000,1300,2000 [facility] Stop: 12/26/18 20:01 Metronidazole 500 mg/ Device 100 mls @ 100 mls/hr IVPB 0200,1000,1800 [facility] Last Admin: 12/25/18 09:35 Dose: 100 mls Ceftriaxone Sodium 2 gm/ (Sodium Chloride) 100 mls @ 200 mls/hr IVPB Q24HR [facility] Last Admin: 12/24/18 22:17 Dose: 100 mls Lactulose (Lactulose) 20 gm PO DAILYPRN PRN PRN Reason: Constipation Metoclopramide HCl (Reglan) 10 mg IVP 0400,1000,1600,2200 [facility] Last Admin: 12/25/18 09:34 Dose: 10 mg Morphine Sulfate (Morphine) 4 mg SLOW IVP Q4H PRN PRN Reason: Moderate Pain (4-6) Last Admin: 12/22/18 06:10 Dose: 4 mg Neomycin Sulfate (Neomycin Sulfate) 1,000 mg PO 1000,1300,2000 [facility] Stop: 12/26/18 20:01 Polyethylene Glycol (Miralax) 17 gm PO DAILYPRN PRN PRN Reason: Constipation Polyethylene Glycol/Electrolytes (Golytely) 4,000 ml PO 1000 [facility] Stop: 12/26/18 23:59 Promethazine HCl (Phenergan) 12.5 mg PO Q4H PRN PRN Reason: Nausea Senna/Docusate Sodium (Senokot S) 1 tab PO BID [facility] Last Admin: 12/25/18 09:33 Dose: 1 tab Sodium Chloride (Flush - Normal Saline) 10 ml IVF Q12HR [facility] Last Admin: 12/25/18 09:34 Dose: 10 ml Sodium Chloride (Flush - Normal Saline) 10 ml IVF PRN PRN PRN Reason: Saline Flush Last Admin: 12/21/18 12:34 Dose: 10 ml
[2018-12-25 20:07] LABS: Fungus Stain Final report (.)
[2018-12-25] MEDS: cefTRIAXone\\ROCEPHIN 2 GM in Sodium Chloride 0.9% 100 ML IVPB SCH (20:37)
[2018-12-26] MEDS: metroNIDAZOLE 500 MG in Premix Bag 1 BAG IVPB SCH ×3 (02:21→17:58)
[2018-12-26] MEDS: Metoclopramide HCl 10 MG/2 ML VIAL IVP SCH ×4 (03:33→21:00)
[2018-12-26] MEDS: Acetaminophen 325 MG TAB PO PRN ×2 (04:14→20:54)
[2018-12-26] MEDS: Enoxaparin Sodium 60 MG/0.6 ML SYRINGE SC SCH ×2 (09:53→10:03)
[2018-12-26] MEDS: Senokot S 8.6-50 MG TAB PO SCH ×2 (09:54→20:56)
[2018-12-26] MEDS ORDERED: GoLYTELY 4,000 ml Bottle PO SCH (10:00)
[2018-12-26] MEDS ORDERED: Heparin 25,000 units/D5W 500 ML IVPB SCH (10:15)
--- NOTE | 2018-12-26 10:19 | PDOC.PN ---
- Subjective Encounter Start Date: 12/26/18 Encounter Start Time: 10:17 Subjective: pt up in bed complains of pain to his left lower leg - Objective Resuscitation Status - Order Detail: 12/19/18 17:47 Resuscitation Status Routine Resuscitation Status: FULL: Full Resuscitation Vital Signs & Weight: Vital Signs (12 hours) Temp Pulse Resp BP Pulse Ox 12/26/18 08:00 97.4 F L 86 18 135/75 94 L 12/26/18 04:00 98.3 F 102 H 18 141/77 H 96 12/25/18 23:58 97.8 F 89 20 151/85 H 94 L Weight Admit Weight 117 lb 14.4 oz Weight 117 lb 6.4 oz I&O: 12/25/18 12/26/18 12/27/18 06:59 06:59 06:59 Intake Total 700 1700 Output Total 650 500 Balance 50 1200 Result Diagrams: 12/24/18 15:31 12/24/18 05:40 Phys Exam - Physical Examination Neck: no nodes, no JVD, supple, full ROM Respiratory: no wheezing, no rales, no rhonchi, wheezing present, clear to auscultation bilateral Cardiovascular: RRR, no significant murmur, no rub, gallop, irregular Gastrointestinal: soft, non-tender, no distention, positive bowel sounds pedal pulse present to both feet Dx/Plan (1) Deep venous thrombosis of left femoral vein Code(s): I82.412 - ACUTE EMBOLISM AND THROMBOSIS OF LEFT FEMORAL VEIN Status: Acute Qualifiers: Chronicity: acute Qualified Code(s): I82.412 - Acute embolism and thrombosis of left femoral vein Comment: on full dose Lovenox (2) Ureteral obstruction, left Code(s): N13.5 - CROSSING VESSEL AND STRICTURE OF URETER W/O HYDRONEPHROSIS Status: Acute Comment: s/p stent placement in [place], urology evaluated, recommends leaving stent as is for now (3) Mesenteric mass Code(s): K63.9 - DISEASE OF INTESTINE, UNSPECIFIED Status: Acute (4) Psoas abscess, left Code(s): K68.12 - PSOAS MUSCLE ABSCESS Status: Acute Comment: on Levaquin, Metronidazole, and Vancomycin since 12/19/2018, Dr. Cornelius and Dr. Horn consulted, Dr. Justina concerned about cancer, needle aspiration done and culture pending, Dr. Ma consulted for colonoscopy to explore the possibility of Crohn 's disease. - Plan will stop lovonox, last dose was 12/25 at 2100 -: will start heparin no bolus. Discussed with pt and about -: surgery in am. -: will check labs today and in am * . Review of Systems - Review of Systems Respiratory: negative: Cough, Dry, Shortness of Breath, Hemoptysis, SOB with Excertion, Pleuritic Pain, Sputum, Wheezing Cardiovascular: negative: chest pain, palpitations, orthopnea, paroxysmal nocturnal dyspnea, edema, light headedness, other Gastrointestinal: negative: Nausea, Vomiting, Abdominal Pain, Diarrhea, Constipation, Melena, Hematochezia, Other - Medications/Allergies Allergies/Adverse Reactions: Allergies Allergy/AdvReac Type Severity Reaction Status Date / Time Penicillins Allergy Verified 12/19/18 15:48 Medications: Current Medications Acetaminophen (Tylenol) 650 mg PO Q4H PRN PRN Reason: Headache/Fever/Mild Pain (1-3) Last Admin: 12/26/18 04:14 Dose: 650 mg Erythromycin (Erythromycin Base) 1,000 mg PO 1000,1300,2000 [facility] Stop: 12/26/18 20:01 Heparin Sodium (Porcine) (Heparin 1,000 Units/Ml (10 Ml)) 0 units SLOW IVP ASDIR [facility]; Protocol Metronidazole 500 mg/ Device 100 mls @ 100 mls/hr IVPB 0200,1000,1800 [facility] Last Admin: 12/26/18 09:54 Dose: 100 mls Ceftriaxone Sodium 2 gm/ (Sodium Chloride) 100 mls @ 200 mls/hr IVPB Q24HR [facility] Last Admin: 12/25/18 20:37 Dose: 100 mls Heparin Sodium/Dextrose (Heparin 25,000 Units/D5w 500 Ml) 500 mls @ 0 mls/hr IVPB INF [facility]; Protocol Lactulose (Lactulose) 20 gm PO DAILYPRN PRN PRN Reason: Constipation Metoclopramide HCl (Reglan) 10 mg IVP 0400,1000,1600,2200 [facility] Last Admin: 12/26/18 09:54 Dose: 10 mg Morphine Sulfate (Morphine) 4 mg SLOW IVP Q4H PRN PRN Reason: Moderate Pain (4-6) Last Admin: 12/22/18 06:10 Dose: 4 mg Neomycin Sulfate (Neomycin Sulfate) 1,000 mg PO 1000,1300,2000 [facility] Stop: 12/26/18 20:01 Polyethylene Glycol (Miralax) 17 gm PO DAILYPRN PRN PRN Reason: Constipation Polyethylene Glycol/Electrolytes (Golytely) 4,000 ml PO 1000 [facility] Stop: 12/26/18 23:59 Last Admin: 12/26/18 09:55 Dose: 4,000 ml Promethazine HCl (Phenergan) 12.5 mg PO Q4H PRN PRN Reason: Nausea Senna/Docusate Sodium (Senokot S) 1 tab PO BID [facility] Last Admin: 12/26/18 09:54 Dose: Not Given Sodium Chloride (Flush - Normal Saline) 10 ml IVF Q12HR [facility] Last Admin: 12/26/18 09:54 Dose: 10 ml Sodium Chloride (Flush - Normal Saline) 10 ml IVF PRN PRN PRN Reason: Saline Flush Last Admin: 12/21/18 12:34 Dose: 10 ml
[2018-12-26] MEDS: Neomycin 500 mg Tablet PO SCH ×3 (10:33→20:55)
[2018-12-26] MEDS: Erythromycin Base 250 MG TAB PO SCH ×3 (10:33→20:55)
[2018-12-26 11:09] LABS: Hemoglobin 9.7 g/dL (14.0-18.0); Platelet Count 867 thou/uL (130-400)
[2018-12-26 11:34] LABS: Anion Gap 13 mmol/L (10-20); BUN (Urea Nitrogen) 6 mg/dL (8.4-25.7); Calc. Creatinine Clearance 90 mL/min (70-130); Calcium 8.6 mg/dL (7.8-10.44); Carbon Dioxide 26 mmol/L (23-31); Chloride 98 mmol/L (98-107); Estimated GFR-MDRD Greater than 90; Glucose 77 mg/dL (80-115); Magnesium 1.9 mg/dL (1.6-2.6); Phosphorus 3.2 mg/dL (2.3-4.7); Potassium 3.5 mmol/L (3.5-5.1); Sodium 133 mmol/L (136-145)
[2018-12-26 15:23] LABS: Hemoglobin 9.1 g/dL (14.0-18.0); Platelet Count 777 thou/uL (130-400)
[2018-12-26] MEDS: Heparin 10,000 UNITS/ 10 ML VIAL SLOW IVP SCH (18:48)
[2018-12-26] MEDS: cefTRIAXone\\ROCEPHIN 2 GM in Sodium Chloride 0.9% 100 ML IVPB SCH (20:55)
[2018-12-27] MEDS: metroNIDAZOLE 500 MG in Premix Bag 1 BAG IVPB SCH ×3 (01:48→18:38)
[2018-12-27] MEDS: Heparin 10,000 UNITS/ 10 ML VIAL SLOW IVP SCH (01:55)
[2018-12-27] MEDS: Metoclopramide HCl 10 MG/2 ML VIAL IVP SCH ×3 (04:18→17:15)
[2018-12-27 06:08] LABS: #Lymphocytes 0.9 thou/uL (1.20-3.40); #Monocytes 0.6 thou/uL (0.11-0.59); #Neutrophils 9.2 thou/uL (1.40-6.50); %Basophils 0.1 % (0.0-1.0); %Eosinophils 0.3 % (0.0-10.0); %Lymphocytes 8.2 % (21.0-51.0); %Monocytes 5.8 % (0.0-10.0); %Neutrophils 85.5 % (42.0-75.0); Hemoglobin 8.8 g/dL (14.0-18.0); Mean Corpuscular Hemoglobin 25.7 pg (27.0-31.0); Mean Platelet Volume 5.8 fL (7.4-10.4); Platelet Count 699 thou/uL (130-400); RBC Distribution Width 15.3 % (11.5-14.5); Red Blood Cell (RBC) Count 3.42 mill/uL (4.70-6.10); White Blood Cell (WBC) Count 10.8 thou/uL (4.8-10.8)
[2018-12-27 06:31] LABS: Anion Gap 15 mmol/L (10-20); BUN (Urea Nitrogen) 5 mg/dL (8.4-25.7); Calc. Creatinine Clearance 93 mL/min (70-130); Carbon Dioxide 25 mmol/L (23-31); Chloride 98 mmol/L (98-107); Estimated GFR-MDRD Greater than 90; Glucose 72 mg/dL (80-115); Potassium 3.3 mmol/L (3.5-5.1); Sodium 135 mmol/L (136-145)
[2018-12-27] MEDS: Senokot S 8.6-50 MG TAB PO SCH (07:37)
[2018-12-27] MEDS ORDERED: NS 0.9% w/ 20 MEQ KCL 1,000 ML/1,000 ML BAG IV SCH (08:00)
[2018-12-27] MEDS ORDERED: Potassium Chloride 10 MEQ in Premix Bag 1 BAG IVPB SCH (08:00)
[2018-12-27] MEDS ORDERED: Bupivacaine HCl 0.5%/Epinephrine 1:200,000/PF 30 ml Vial ONE (09:05)
[2018-12-27] MEDS ORDERED: PROPOFOL 200 MG/20 ML VIAL ONE (09:48)
[2018-12-27] MEDS ORDERED: Calcium Chloride 1 GM/10 ML Abboject SYRINGE ONE (09:48)
[2018-12-27] MEDS ORDERED: Lidocaine 1% PF 5 ML VIAL ONE (09:48)
[2018-12-27] MEDS ORDERED: Rocuronium Bromide 10 MG/ML (10ML VIAL) ONE (09:48)
[2018-12-27] MEDS ORDERED: Ketorolac Tromethamine 30 MG/ML VIAL ONE (09:48)
[2018-12-27] MEDS ORDERED: Succinylcholine Chloride 20 MG/ML 10 ml SYRINGE FS ONE (09:48)
[2018-12-27] MEDS ORDERED: PHENYLEPHRINE-NS 100 MCG/ML 10 ML SYRINGE ONE (09:48)
[2018-12-27] MEDS ORDERED: Fentanyl 100 MCG/2 ML VIAL ONE ×2 (10:58→12:55)
[2018-12-27] MEDS ORDERED: Midazolam HCl 2 mg/2 ml Vial ONE ×2 (10:58→12:55)
[2018-12-27] MEDS ORDERED: Dexamethasone 4 mg/ml Vial ONE (10:58)
[2018-12-27] MEDS ORDERED: cefOXitin 2 GM VIAL ONE ×2 (13:44→15:33)
[2018-12-27] MEDS ORDERED: Hetastarch 6% 500 ML 500 ML ONE (13:47)
[2018-12-27] MEDS ORDERED: Phenylephrine HCL 10 MG/ML VIAL ONE (14:05)
[2018-12-27] MEDS ORDERED: Ondansetron HCl/PF 4 MG/2 ML Vial IVP PRN (17:05)
[2018-12-27] MEDS ORDERED: Promethazine HCl 25 MG/ML VIAL SLOW IVP PRN (17:05)
[2018-12-27] MEDS ORDERED: Promethazine HCl 25 MG/ML VIAL IM PRN ×2 (17:05→17:31)
[2018-12-27] MEDS ORDERED: Morphine 2 MG/ML SYRINGE SLOW IVP PRN (17:31)
[2018-12-27] MEDS ORDERED: Morphine 4 MG/ML VIAL SLOW IVP PRN (17:31)
[2018-12-27] MEDS ORDERED: hydrALAZINE 20 MG/ML VIAL SLOW IVP PRN (17:31)
[2018-12-27] MEDS ORDERED: Ondansetron PF 4 MG/2 ML Vial IVP PRN (17:31)
[2018-12-27] MEDS ORDERED: cefOXitin Sodium 1 GM in Sodium Chloride 0.9% 100 ML IVPB SCH (17:31)
[2018-12-27] MEDS ORDERED: Acetaminophen 1,000 MG in Premix Bag 1 BAG IVPB SCH (18:00)
[2018-12-27] MEDS ORDERED: Ketorolac Tromethamine 30 MG/ML VIAL IVP SCH (18:00)
[2018-12-27] MEDS: D5 1/2 NS w/20 mEq KCL 1,000 ML IV SCH (18:38)
[2018-12-27] MEDS: Morphine 4 MG/ML VIAL SLOW IVP PRN (18:39)
[2018-12-27] MEDS: cefTRIAXone\\ROCEPHIN 2 GM in Sodium Chloride 0.9% 100 ML IVPB SCH (20:35)
[2018-12-27] MEDS: Famotidine/PF 20 mg/2ml Vial SLOW IVP SCH (20:36)
[2018-12-27] MEDS: Famotidine 20 MG TAB PO SCH (20:36)
[2018-12-27] MEDS ORDERED: Enoxaparin Sodium 60 MG/0.6 ML SYRINGE SC SCH (21:30)
[2018-12-27] MEDS: Acetaminophen 1,000 MG in Premix Bag 1 BAG IVPB SCH (22:51)
[2018-12-27] MEDS: Ketorolac Tromethamine 30 MG/ML VIAL IVP SCH (22:51)
--- NOTE | 2018-12-28 00:45 | OP ---
DATE OF PROCEDURE: 12/27/2018 PREOPERATIVE DIAGNOSES: Mesenteric/retroperitoneal mass, near obstruction of sigmoid colon without intraluminal process, and recent diagnosis of a psoas abscess. POSTOPERATIVE DIAGNOSES: Mesenteric/retroperitoneal mass, near obstruction of sigmoid colon without intraluminal process, and recent diagnosis of a psoas abscess with large pelvic/left retroperitoneal abscess. OPERATIONS PERFORMED: Exploratory laparotomy with full-thickness small intestinal biopsy with closure of subsequent enterotomy, ileocecectomy with primary stapled anastomosis, sigmoid colectomy with primary stapled anastomosis, drainage of pelvic/retroperitoneal abscess with retroperitoneal drain placement. ANESTHESIA: General endotracheal. INDICATIONS: The patient is a 63-year-old ill appearing white male. He has experienced some weight loss and left-sided back, hip and leg discomfort over the past couple of months. CT scans revealed ureteral obstruction for which ureteral stent was placed a couple of months ago. There appears to be an inflammatory mesenteric/retroperitoneal process, which did not appear to be amenable with an area that could be drained or biopsied. Colonoscopy was performed with difficulty, revealing an area of near-complete obstruction of the sigmoid colon. The patient was taken to the operative room at this time for exploratory laparotomy to discern the intraabdominal findings. DESCRIPTION OF OPERATION: A TEE block was placed by Anesthesia before proceeding to the room. General endotracheal anesthesia was obtained with the patient in supine position. He was then placed in dorsal lithotomy using Yellofins stirrups. Solis catheter was placed. The abdomen was prepped with ChloraPrep and draped in sterile fashion. A midline incision was created and dissection was carried through skin and subcutaneous tissue in the midline. Careful abdominal exploration was carried out. The small bowel appeared to largely be of normal caliber. When I ran this from the ligament of Treitz distally, I noted a segment of the mid small bowel that was densely adherent to the retroperitoneum. There was noted to be induration within the retroperitoneal tissue at this level. I then traced the small bowel distally and the a segment of distal ileum was densely adherent to the retroperitoneum into the sigmoid colon mesentery. This was immediately prior to the cecum. The appendix and the cecum were also involved in this inflammatory retroperitoneal process. I first dissected the small bowel away from the retroperitoneum. In hopes of gaining a diagnosis of the process that was causing this (I suspected this was a cancer), I did a full-thickness biopsy of the lesion to which the small bowel had been adherent. This revealed only inflammatory and abscess like structures. This is the specimen I submitted. I resected in a longitudinal fashion along the small bowel. This was then closed transversely using a 3-0 Vicryl running suture to close the inner layer and interrupted sutures of 3-0 silk to approximate the skin edges. A second adjacent lesion was not excised, but hemostasis was obtained with electrocautery. Attention was then turned to the terminal ileum and right colon. The right colon was mobilized along the white line of Toldt. A segment of small bowel proximal to the inflammatory involvement was selected. Much of the mesenteric adhesion was mobilized using blunt digital dissection. A double stapled anastomosis was created between the small bowel proximal to the area of abnormality and the mid right colon. The specimen was passed off the field and submitted for frozen section diagnosis. This unfortunately also revealed only inflammatory and abscess like structures. The anastomosis was buttressed with several interrupted sutures of 3-0 silk and the mesenteric defect was closed with a running suture of 3-0 Vicryl. At this point, I could run the small bowel from the ligament of Treitz to the anastomosis with the right colon. Attention was turned to the sigmoid colon. The left colon was mobilized along the white line of Toldt using electrocautery. Later in the case, I would fully mobilize the splenic flexure in the usual fashion, mobilizing the omentum off the distal transverse colon and mobilizing the entirety of the splenic flexure. I could not mobilize any of the inflammatory portion of the sigmoid colon away from the lateral abdominal wall or the retroperitoneum. I dissected distally and identified a segment of rectosigmoid colon that was free of disease and this was divided with a firing of the SAE stapler. I did the same with a segment of descending colon and also divided with the SAE stapler. I then began taking down the inflammation again using digital blunt dissection and dividing some of the vascular tissue with the LigaSure Impact. The specimen was passed off the field as well. During the course of this mobilization, I noted an area of purulent material coming from the retroperitoneum within the pelvis, specifically on the left-hand side. As I opened up the tissue to better expose the retroperitoneum, more purulence was returned. I was able to unroof what proved to be an abscess in this area and digitally explored this. This extended not only lower down within the pelvis, but also laterally to the left-hand side. I irrigated the area extensively and obtained hemostasis with electrocautery. I obtained a 1/2 inch Stephane drain and placed it down within this abscess cavity as I felt this would be the best way to keep this area open to allow appropriate ongoing drainage. This was secured to some of the retroperitoneal tissue with a 3-0 Vicryl suture. From below, EEA sizers followed by the 31 mm EEA stapler was passed up to the rectal staple line. A 31 mm anvil was placed into the descending colon just proximal to the staple line. The colotomy was then closed with another fire of the stapler. A pursestring suture was applied around the anvil. This was secured to the stapler and the 2 segments were anastomosed by mating the stapler and then firing the stapler. The anastomosis was checked under water to ensure that it was airtight. I then placed 3 buttressing sutures with 3-0 silk as well. I then inspected the right colonic anastomosis in the small bowel resection area and these appeared to be healing appropriately. The abdomen was irrigated with 4 L of warm saline and all irrigant was aspirated. A #19 round fluted drain was placed within the abdomen, brought out through the right abdominal wall where it was secured with a 3-0 nylon suture. The Stephane drain was brought out through the left lower quadrant incision where it was also secured with a 3-0 nylon suture. Two sheets of Seprafilm were placed below the fascia and the fascia was then closed using running suture of looped #1 PDS. Gowns and gloves were changed. All materials used during the resection were passed off the field. The area was cleansed with saline and sterile towels were placed. The fascia was closed with running suture of looped #1 PDS. The wound was extensively irrigated with 2 L of saline using the Pulsavac. The skin edges were approximated with skin johnson. Dry gauze dress was placed over the incision. Another dressing was placed over the Stephane drain in the left lower quadrant and finally gauze was placed over the EDI drain in the right lower abdomen. There were no complications. Blood loss was minimal. Cultures were obtained of the abscess. The abscess fluid that was aspirated was estimated to have been about 100 mL of purulence. The patient was in stable condition and taken to recovery room. Job ID: [id number]
[2018-12-28] MEDS: metroNIDAZOLE 500 MG in Premix Bag 1 BAG IVPB SCH ×3 (02:57→17:47)
[2018-12-28] MEDS: Ketorolac Tromethamine 30 MG/ML VIAL IVP SCH ×4 (03:00→22:09)
[2018-12-28] MEDS: Acetaminophen 1,000 MG in Premix Bag 1 BAG IVPB SCH ×3 (03:01→15:41)
[2018-12-28] MEDS: D5 1/2 NS w/20 mEq KCL 1,000 ML IV SCH ×3 (06:15→18:20)
[2018-12-28 06:45] LABS: #Lymphocytes 0.5 thou/uL (1.20-3.40); #Monocytes 0.5 thou/uL (0.11-0.59); #Neutrophils 7.9 thou/uL (1.40-6.50); %Basophils 0.1 % (0.0-1.0); %Eosinophils 0.2 % (0.0-10.0); %Lymphocytes 5.4 % (21.0-51.0); %Neutrophils 88.3 % (42.0-75.0); Hemoglobin 11.3 g/dL (14.0-18.0); Mean Corpuscular HGB CONC 31.8 g/dL (32.0-36.0); Mean Corpuscular Hemoglobin 27.1 pg (27.0-31.0); Mean Corpuscular Volume 85.4 fL (78.0-98.0); Mean Platelet Volume 6.1 fL (7.4-10.4); Platelet Count 661 thou/uL (130-400); RBC Distribution Width 15.3 % (11.5-14.5); Red Blood Cell (RBC) Count 4.16 mill/uL (4.70-6.10)
[2018-12-28 07:02] LABS: Anion Gap 11 mmol/L (10-20); BUN (Urea Nitrogen) 8 mg/dL (8.4-25.7); Calc. Creatinine Clearance 93 mL/min (70-130); Calcium 7.8 mg/dL (7.8-10.44); Carbon Dioxide 23 mmol/L (23-31); Chloride 104 mmol/L (98-107); Estimated GFR-MDRD Greater than 90; Glucose 139 mg/dL (80-115); Potassium 4.1 mmol/L (3.5-5.1); Sodium 134 mmol/L (136-145)
[2018-12-28] MEDS: Enoxaparin Sodium 60 MG/0.6 ML SYRINGE SC SCH ×2 (07:57→20:00)
[2018-12-28] MEDS: Famotidine 20 MG TAB PO SCH ×2 (07:57→20:01)
[2018-12-28] MEDS: Famotidine/PF 20 mg/2ml Vial SLOW IVP SCH ×2 (08:51→20:00)
[2018-12-28] MEDS ORDERED: Enoxaparin Sodium 40 MG/0.4 ML SYRINGE SC SCH (09:00)
--- NOTE | 2018-12-28 09:59 | PRG ---
DATE OF SERVICE: 12/28/2018 SUBJECTIVE: Mr. Andre is postoperative day #1 from exploratory laparotomy and resection of 2 separate segments of his colon. I drained a large left pelvic/retroperitoneal abscess. He is in very good spirits this morning. He tells me he has no pain and he feels much better than he did prior to surgery. He tells me he slept like a baby last night. His primary complaint is being hungry. He has not had any flatus or bowel movement. OBJECTIVE: VITAL SIGNS: On examination, he is afebrile with temperature of 97.4, pulse is 90, and blood pressure 137/84. His urine output overnight was 500 mL. His EDI drain put out 280 mL of serosanguineous fluid, and his [place] drain put out 20 mL. LUNGS: Clear to auscultation. CARDIAC: Regular rate and rhythm. ABDOMEN: Has dressing intact. Bowel sounds are present and normoactive. The drainage fluid in both drains is serosanguineous. LABORATORY DATA: His electrolytes are essentially normal. BUN and creatinine are normal and stable. CBC reveals a hemoglobin of 11.3, up from 8.8 yesterday. He was transfused with 2 units of packed red blood cells during the surgery. His white blood cell count has dropped from 10.8 down to 9.0. He still has a left shift. ASSESSMENT: The patient is doing well following drainage of retroperitoneal abscess. The severe intraabdominal changes were treated with a sigmoid colectomy and an ileocecectomy. His drains are intact and functioning. I will advance his diet to clear liquids today and encourage him to continue ambulating. His Solis catheter will be removed today. I will communicate with Dr. Horn regarding his long-term antibiotics. Job ID: [id number]
[2018-12-28] MEDS ORDERED: Sodium Chloride 0.9% 500 ML IV SCH ×2 (12:00→16:15)
--- NOTE | 2018-12-28 15:36 | PDOC.PN ---
- Subjective Encounter Start Date: 12/28/18 Encounter Start Time: 10:45 Subjective: pt up in bed no complains - Objective Resuscitation Status - Order Detail: 12/19/18 17:47 Resuscitation Status Routine Resuscitation Status: FULL: Full Resuscitation Vital Signs & Weight: Vital Signs (12 hours) Temp Pulse Resp BP BP Pulse Ox 12/28/18 15:19 97.5 F L 88 18 132/79 98 12/28/18 11:15 97.5 F L 90 18 132/87 98 12/28/18 07:53 97.4 F L 90 16 137/84 94 L 12/28/18 04:00 97.6 F 90 18 125/78 93 L Weight Admit Weight 117 lb 14.4 oz Weight 117 lb 6.4 oz I&O: 12/27/18 12/28/18 12/29/18 06:59 06:59 06:59 Intake Total 2610 1560 Output Total 250 800 Balance 2360 760 Result Diagrams: 12/28/18 05:54 12/28/18 05:54 Additional Labs: Accuchecks 12/27/18 17:17 POC Glucose 130 H Phys Exam - Physical Examination Neck: no nodes, no JVD, supple, full ROM Respiratory: no wheezing, no rales, no rhonchi, wheezing present, clear to auscultation bilateral Cardiovascular: RRR, no significant murmur, no rub, gallop, irregular Gastrointestinal: soft, positive bowel sounds soni drain Dx/Plan (1) Deep venous thrombosis of left femoral vein Code(s): I82.412 - ACUTE EMBOLISM AND THROMBOSIS OF LEFT FEMORAL VEIN Status: Acute Qualifiers: Chronicity: acute Qualified Code(s): I82.412 - Acute embolism and thrombosis of left femoral vein Comment: on full dose Lovenox (2) Ureteral obstruction, left Code(s): N13.5 - CROSSING VESSEL AND STRICTURE OF URETER W/O HYDRONEPHROSIS Status: Acute Comment: s/p stent placement in [place], urology evaluated, recommends leaving stent as is for now (3) Mesenteric mass Code(s): K63.9 - DISEASE OF INTESTINE, UNSPECIFIED Status: Acute (4) Psoas abscess, left Code(s): K68.12 - PSOAS MUSCLE ABSCESS Status: Acute Comment: on Levaquin, Metronidazole, and Vancomycin since 12/19/2018, Dr. Cornelius and Dr. Horn consulted, Dr. Horn concerned about cancer, needle aspiration done and culture pending, Dr. Ma consulted for colonoscopy to explore the possibility of Crohn 's disease. - Plan s/p exp lap. cx sent. will continue abx for now -: pt back on lovonox for his dvt. -: Advance diet per surgeon * . Review of Systems - Review of Systems Respiratory: negative: Cough, Dry, Shortness of Breath, Hemoptysis, SOB with Excertion, Pleuritic Pain, Sputum, Wheezing Cardiovascular: negative: chest pain, palpitations, orthopnea, paroxysmal nocturnal dyspnea, edema, light headedness, other Gastrointestinal: negative: Nausea, Vomiting, Abdominal Pain, Diarrhea, Constipation, Melena, Hematochezia, Other - Medications/Allergies Allergies/Adverse Reactions: Allergies Allergy/AdvReac Type Severity Reaction Status Date / Time Penicillins Allergy Verified 12/19/18 15:48 Medications: Current Medications Acetaminophen (Tylenol) 650 mg PO Q4H PRN PRN Reason: Headache/Fever/Mild Pain (1-3) Hydrocodone Bitart/Acetaminophen ([place] 7.5/325) 1 tab PO Q4H PRN PRN Reason: Mild Pain (1-3) Albuterol/Ipratropium (Duoneb) 3 ml NEB Q4H PRN PRN Reason: Wheezing Enoxaparin Sodium (Lovenox) 50 mg SC 0900,2100 [facility] Last Admin: 12/28/18 07:57 Dose: 50 mg Famotidine (Pepcid) 20 mg PO Q12HR [facility] Last Admin: 12/28/18 07:57 Dose: 20 mg Famotidine (Pepcid) 20 mg SLOW IVP Q12HR [facility] Last Admin: 12/28/18 08:51 Dose: Not Given Hydralazine HCl (Apresoline) 10 mg SLOW IVP Q4H PRN PRN Reason: SBP > 170 or DBP > 100 Metronidazole 500 mg/ Device 100 mls @ 100 mls/hr IVPB 0200,1000,1800 [facility] Last Admin: 12/28/18 10:06 Dose: 100 mls Ceftriaxone Sodium 2 gm/ (Sodium Chloride) 100 mls @ 200 mls/hr IVPB Q24HR [facility] Last Admin: 12/27/18 20:35 Dose: 100 mls Potassium Chloride/Dextrose/Sod Cl (D5 1/2 Ns W/20 Meq Kcl) 1,000 mls @ 120 mls /hr IV .Q8H20M [facility] Last Admin: 12/28/18 06:15 Dose: 1,000 mls Acetaminophen 1,000 mg/ Device 100 mls @ 400 mls/hr IVPB 0400,1000,1600,2200 [facility] Stop: 12/28/18 16:14 Last Admin: 12/28/18 09:47 Dose: 100 mls Ketorolac Tromethamine (Toradol) 15 mg IVP 0400,1000,1600,2200 [facility] Stop: 12/30/18 16:01 Last Admin: 12/28/18 09:47 Dose: 15 mg Morphine Sulfate (Morphine) 2 mg SLOW IVP Q2H PRN PRN Reason: Moderate Pain (4-6) Morphine Sulfate (Morphine) 4 mg SLOW IVP Q2H PRN PRN Reason: Severe Pain (7-10) Ondansetron HCl (Zofran) 4 mg IVP Q6H PRN PRN Reason: Nausea/Vomiting Promethazine HCl (Phenergan) 12.5 mg IM Q4H PRN PRN Reason: Nausea/Vomiting Sodium Chloride (Flush - Normal Saline) 10 ml IVF PRN PRN PRN Reason: Saline Flush
[2018-12-28] MEDS ORDERED: HYDROcodone/Acetaminophen 7.5/325 mg Tablet PO PRN (18:00)
--- NOTE | 2018-12-28 19:33 | PRG ---
DATE OF SERVICE: 12/28/2018 SUBJECTIVE: Mr. Andre had exploratory laparotomy, the only finding was an abscess. The operative report was reviewed, and the patient had a full-thickness small intestinal biopsy with closure of subsequent enterotomy, ileocecectomy with primary stapled anastomosis, sigmoid colectomy with primary stapled anastomosis, and drainage of retroperitoneal abscess. Pathology is pending at this time. He has minor pain. OBJECTIVE: VITAL SIGNS: Essentially normal. LUNGS: Symmetric. Clear breath sounds. HEART: S1 and S2, regular rate. ABDOMEN: Soft. There is a retroperitoneal drain in place, and 2 primary anastomoses, so no colostomy or ileostomy was needed. LABORATORY DATA: White cell count 9.0, hemoglobin 11, platelets 661, 88% neutrophils. Sodium 134, creatinine 0.61. Fungal stain showed no yeast or fungi observed. Microbiology, we have only the Strep anginosus group. The Gram stain from the abscess with no organisms seen. ASSESSMENT AND DISCUSSION: Chronic smoking, chronic left flank and back pain, mild neutrophilia, retroperitoneal mass versus abscess, deep vein thrombosis, looks like an abscess was found. This is consistent with perforation of the bowel, may be a chronic inflammatory condition yet to be identified in the pathology specimen. Plan is to switch him to Rocephin and Flagyl for long-term therapy. Followup labs and imaging study down the road as an endpoint for stopping antimicrobial therapy. Await on the pathology results. Job ID: [id number]
[2018-12-28] MEDS: cefTRIAXone\\ROCEPHIN 2 GM in Sodium Chloride 0.9% 100 ML IVPB SCH (19:59)
[2018-12-29] MEDS: metroNIDAZOLE 500 MG in Premix Bag 1 BAG IVPB SCH ×3 (02:06→17:02)
[2018-12-29] MEDS: Acetaminophen 325 MG TAB PO PRN ×2 (02:06→20:19)
[2018-12-29] MEDS: Ketorolac Tromethamine 30 MG/ML VIAL IVP SCH ×4 (05:23→22:41)
[2018-12-29] MEDS: D5 1/2 NS w/20 mEq KCL 1,000 ML IV SCH ×4 (05:24→22:41)
[2018-12-29] MEDS: Enoxaparin Sodium 60 MG/0.6 ML SYRINGE SC SCH ×2 (08:49→20:17)
[2018-12-29] MEDS: Famotidine/PF 20 mg/2ml Vial SLOW IVP SCH ×2 (08:50→20:18)
[2018-12-29] MEDS: Famotidine 20 MG TAB PO SCH ×2 (08:50→20:17)
--- NOTE | 2018-12-29 13:17 | PRG ---
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 He has no complaints. He tells me that he is tolerating his diet uneventfully. He denies nausea or vomiting. He did have a bowel movement yesterday and passing gas, but tells me he has not had any today. OBJECTIVE: VITAL SIGNS: On examination, he is afebrile, pulse 91, and blood pressure 130/79. LUNGS: Clear to auscultation. CARDIAC: Regular rate and rhythm. ABDOMEN: Protuberant, but soft and nontender. Bowel sounds are present and appear to be normoactive. His incision is inspected and found to be healing appropriately. The [place] drain in the left lower quadrant is draining minimally, only about 25 mL for yesterday. His EDI drain has drained about 500 mL yesterday. This is clearing serosanguineous fluid. LABORATORY DATA: He did not have any labs done today. Cultures from his surgery 2 days ago reveal Streptococcus anginosus. ASSESSMENT AND PLAN: The patient with retroperitoneal abscess and scarring of intraabdominal structures secondary to this. He seems to be doing well following resection of 2 separate areas of his colon. He will be continued on full liquid diet for now. He is continued on antibiotics under the guidance of Dr. Horn. I believe Dr. Horn has arranged for a PICC line and has arranged for outpatient antibiotics. I will decrease his IV fluid down to 50 mL per day and continue his full liquid diet for now. Hopefully ready for discharge in the next couple of days. Job ID: [id number]
[2018-12-29] MEDS: cefTRIAXone\\ROCEPHIN 2 GM in Sodium Chloride 0.9% 100 ML IVPB SCH (20:16)
--- NOTE | 2018-12-29 22:10 | PDOC.PN ---
- Subjective Encounter Start Date: 12/29/18 Encounter Start Time: 11:15 Subjective: pt up in bed no complains - Objective Resuscitation Status - Order Detail: 12/19/18 17:47 Resuscitation Status Routine Resuscitation Status: FULL: Full Resuscitation Vital Signs & Weight: Vital Signs (12 hours) Temp Pulse Resp BP BP Pulse Ox 12/29/18 20:00 98 F 94 12 150/85 H 93 L 12/29/18 15:41 98.9 F 96 18 153/79 H 12/29/18 15:02 97.8 F 94 18 145/92 H 96 12/29/18 11:36 97.6 F 91 16 130/79 95 Weight Admit Weight 117 lb 14.4 oz Weight 117 lb 6.4 oz I&O: 12/28/18 12/29/18 12/30/18 06:59 06:59 06:59 Intake Total 1560 5770 Output Total 800 1850 180 Balance 760 3920 -180 Result Diagrams: 12/28/18 05:54 12/28/18 05:54 Phys Exam - Physical Examination Neck: no nodes, no JVD, supple, full ROM Respiratory: no wheezing, no rales, no rhonchi Cardiovascular: RRR, no significant murmur Gastrointestinal: soft, positive bowel sounds soni drain Dx/Plan (1) Deep venous thrombosis of left femoral vein Code(s): I82.412 - ACUTE EMBOLISM AND THROMBOSIS OF LEFT FEMORAL VEIN Status: Acute Qualifiers: Chronicity: acute Qualified Code(s): I82.412 - Acute embolism and thrombosis of left femoral vein Comment: on full dose Lovenox (2) Ureteral obstruction, left Code(s): N13.5 - CROSSING VESSEL AND STRICTURE OF URETER W/O HYDRONEPHROSIS Status: Acute Comment: s/p stent placement in [place], urology evaluated, recommends leaving stent as is for now (3) Mesenteric mass Code(s): K63.9 - DISEASE OF INTESTINE, UNSPECIFIED Status: Acute (4) Psoas abscess, left Code(s): K68.12 - PSOAS MUSCLE ABSCESS Status: Acute Comment: on Levaquin, Metronidazole, and Vancomycin since 12/19/2018, Dr. Cornelius and Dr. Horn consulted, Dr. Horn concerned about cancer, needle aspiration done and culture pending, Dr. Ma consulted for colonoscopy to explore the possibility of Crohn 's disease. - Plan continue abx for now -: path report pending -: will check labs in am * . Review of Systems - Review of Systems Cardiovascular: negative: chest pain, palpitations, orthopnea, paroxysmal nocturnal dyspnea, edema, light headedness, other Gastrointestinal: negative: Nausea, Vomiting, Abdominal Pain, Diarrhea, Constipation, Melena, Hematochezia, Other - Medications/Allergies Allergies/Adverse Reactions: Allergies Allergy/AdvReac Type Severity Reaction Status Date / Time Penicillins Allergy Verified 12/19/18 15:48 Medications: Current Medications Acetaminophen (Tylenol) 650 mg PO Q4H PRN PRN Reason: Headache/Fever/Mild Pain (1-3) Last Admin: 12/29/18 20:19 Dose: 650 mg Hydrocodone Bitart/Acetaminophen ([place] 7.5/325) 1 tab PO Q4H PRN PRN Reason: Mild Pain (1-3) Albuterol/Ipratropium (Duoneb) 3 ml NEB Q4H PRN PRN Reason: Wheezing Enoxaparin Sodium (Lovenox) 50 mg SC 0900,2100 [facility] Last Admin: 12/29/18 20:17 Dose: 50 mg Famotidine (Pepcid) 20 mg PO Q12HR [facility] Last Admin: 12/29/18 20:17 Dose: 20 mg Famotidine (Pepcid) 20 mg SLOW IVP Q12HR [facility] Last Admin: 12/29/18 20:18 Dose: Not Given Hydralazine HCl (Apresoline) 10 mg SLOW IVP Q4H PRN PRN Reason: SBP > 170 or DBP > 100 Metronidazole 500 mg/ Device 100 mls @ 100 mls/hr IVPB 0200,1000,1800 [facility] Last Admin: 12/29/18 17:02 Dose: 100 mls Ceftriaxone Sodium 2 gm/ (Sodium Chloride) 100 mls @ 200 mls/hr IVPB Q24HR [facility] Last Admin: 12/29/18 20:16 Dose: 100 mls Potassium Chloride/Dextrose/Sod Cl (D5 1/2 Ns W/20 Meq Kcl) 1,000 mls @ 120 mls /hr IV .Q8H20M [facility] Last Admin: 12/29/18 20:17 Dose: 1,000 mls Ketorolac Tromethamine (Toradol) 15 mg IVP 0400,1000,1600,2200 [facility] Stop: 12/30/18 16:01 Last Admin: 12/29/18 17:01 Dose: 15 mg Morphine Sulfate (Morphine) 2 mg SLOW IVP Q2H PRN PRN Reason: Moderate Pain (4-6) Morphine Sulfate (Morphine) 4 mg SLOW IVP Q2H PRN PRN Reason: Severe Pain (7-10) Ondansetron HCl (Zofran) 4 mg IVP Q6H PRN PRN Reason: Nausea/Vomiting Promethazine HCl (Phenergan) 12.5 mg IM Q4H PRN PRN Reason: Nausea/Vomiting Sodium Chloride (Flush - Normal Saline) 10 ml IVF PRN PRN PRN Reason: Saline Flush
[2018-12-30] MEDS: metroNIDAZOLE 500 MG in Premix Bag 1 BAG IVPB SCH ×3 (02:15→17:04)
[2018-12-30] MEDS: Ketorolac Tromethamine 30 MG/ML VIAL IVP SCH ×3 (05:09→17:03)
[2018-12-30 06:45] LABS: ALT (SGPT) 10 U/L (8-55); AST (SGOT) 22 U/L (5-34); Albumin 1.7 g/dL (3.4-4.8); Alkaline Phosphatase 101 U/L (40-150); Anion Gap 14 mmol/L (10-20); BUN (Urea Nitrogen) 6 mg/dL (8.4-25.7); Bilirubin, Total 0.3 mg/dL (0.2-1.2); Calc. Creatinine Clearance 98 mL/min (70-130); Calcium 7.7 mg/dL (7.8-10.44); Carbon Dioxide 18 mmol/L (23-31); Chloride 107 mmol/L (98-107); Estimated GFR-MDRD Greater than 90; Globulin 3.2 g/dL (2.4-3.5); Glucose 85 mg/dL (80-115); Magnesium 1.8 mg/dL (1.6-2.6); Potassium 4.5 mmol/L (3.5-5.1); Protein, Total 4.9 g/dL (5.8-8.1); Sodium 134 mmol/L (136-145)
[2018-12-30] MEDS: Enoxaparin Sodium 60 MG/0.6 ML SYRINGE SC SCH ×2 (09:01→20:00)
[2018-12-30] MEDS: Famotidine 20 MG TAB PO SCH ×2 (09:02→20:00)
[2018-12-30] MEDS: Famotidine/PF 20 mg/2ml Vial SLOW IVP SCH ×2 (09:03→20:01)
--- NOTE | 2018-12-30 12:22 | PRG ---
DATE OF SERVICE: 12/30/2018 SUBJECTIVE: The patient is seen and examined at the bedside. He does not have much complaints to offer. Some back discomfort, but nothing in the abdomen. He is tolerating his clear liquids without any problems. OBJECTIVE: VITAL SIGNS: Blood pressure is 149/92, temperature is 97.5, pulse 97, respirations 12, O2 saturation is 95% on room air. HEENT: His head is atraumatic and normocephalic. Pupils are responding to light properly. Sclerae are nonicteric. Oral mucosa is slightly dry. NECK: Supple. LUNGS: Clear. HEART: S1 and S2 are normal. ABDOMEN: Distended. The incision looks good. It is stapled. Bowel sounds are very active. He has a colostomy bag on the left side, and right side with the drain. NEUROLOGIC: He is alert and oriented x4. There are no any sensory or motor deficits present. Cranial nerves are intact. LABORATORY DATA: Showed sodium of 134, potassium 4.5, chloride 107, CO2 of 18, BUN 6, creatinine 0.58, calcium 7.7, albumin is 1.7. Microbiology; Streptococcus anginosus group, moderate in abscess swab and abdomen. Blood cultures x2, negative. Urine culture x1, negative. IMPRESSION: 1. Deep venous thrombosis of the left femoral vein. 2. Ureteral obstruction on the left, status post stent placement. Recommendation to leave stent as it is for now. 3. Mesenteric mass. 4. Psoas abscess, left. DISCUSSION: PTH, surgical specimen results are still pending. He is continuing on his clear liquids. General surgeon is going to make decision when to advance diet. He is on Lovenox 50 mg subcutaneously twice a day. He will continue ambulation. Job ID: [id number]
--- NOTE | 2018-12-30 14:43 | PRG ---
DATE OF SERVICE: 12/30/2018 SUBJECTIVE: Mr. Andre is postoperative day #3 from his exploratory laparotomy and small bowel and colon resection. He tells me he feels well. He tells me he has had a few small bowel movements, but he has not passed any gas and his abdomen appears to be a little distended in spite of normoactive bowel sounds. He denies nausea or vomiting. He has tolerated full liquid diet. The final cultures from his retroperitoneal abscess revealed Streptococcus anginosus. He was of course on antibiotics for a long time before that was obtained. The final pathology from his bowel resection showed active transmural inflammatory bowel disease at each area that was resected, which involved the terminal ileum, cecum, sigmoid colon, and part of the small bowel. It would therefore appear that he has inflammatory bowel disease that led to an abscess that led to infectious and inflammatory issues which led to his surgery. He is ambulating well. OBJECTIVE: VITAL SIGNS: He is afebrile. Pulse is 90 and blood pressure 152/89. LUNGS: Clear to auscultation. ABDOMEN: Soft and nontender. Incision is healing nicely. Bowel sounds are present and normoactive. He still has serosanguineous drainage from his right EDI drain. This put out 400 mL yesterday. He has a Stephane drain and that is putting out negligible amount of fluid. LABORATORY DATA: He did not have a CBC today. His comprehensive metabolic panel shows minimal electrolyte irregularities. His albumin is low at 1.7. ASSESSMENT: The patient with retroperitoneal abscess secondary to perforated inflammatory bowel disease. Gastroenterology has not seen him since his surgery. I will make sure they are aware of his diagnosis to consider what treatment without might be. Dr. Horn is involved from Infectious Disease standpoint. I believe that his thoughts are that the patient would benefit from a course of long-term antibiotics. For now, I will stop his IV fluids and allow him to continue with full liquid diet. I will advance his diet further until he does have flatus. Hopefully ready for discharge in the next day or two. Job ID: [id number]
[2018-12-30] MEDS: D5 1/2 NS w/20 mEq KCL 1,000 ML IV SCH (17:40)
[2018-12-30] MEDS: cefTRIAXone\\ROCEPHIN 2 GM in Sodium Chloride 0.9% 100 ML IVPB SCH (19:59)
--- NOTE | 2018-12-30 23:52 | PRG ---
DATE OF SERVICE: 12/30/2018 SUBJECTIVE: Mr. Andre is tolerating his liquid diet well. He feels much better than when he came in. Ultimately, colonoscopy could not be completed and the patient underwent surgery by Dr. River. He had resection of the terminal ileum, sigmoid colon and drainage of a large psoas abscess. OBJECTIVE: VITAL SIGNS: Temperature 98.2, pulse 94, blood pressure 139/86. GENERAL: He is in no acute distress. He is alert and oriented x3. LUNGS: Clear to auscultation bilaterally. HEART: Regular rate and rhythm without murmur. ABDOMEN: Soft, minimal tenderness without guarding. Bowel sounds are present. EXTREMITIES: No lower extremity edema. LABORATORY DATA: White blood cell count 9.0, hemoglobin 11.3, platelets 661. Creatinine 0.58, bilirubin 0.3, AST 22, ALT 10, alkaline phosphatase 101, albumin 1.7. 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 He was found to have granulomatous transmural inflammation of the terminal ileum, cecum, and sigmoid colon. This led to large abscess and obstructive process in the bowel. He is now status post surgical resection and drainage of the abscess and doing much better. Special stains were negative for AFB. RECOMMENDATIONS: 1. He is recovering from surgery now, but we will ultimately need to start an anti-TNF to prevent recurrent disease. It is anticipated that he may be discharged home tomorrow and he can follow up in GI clinic in a couple of weeks. In the meantime, I will check labs in anticipation of starting an anti-TNF to include QuantiFERON, viral hepatitis and HIV testing. 2. Follow up in GI Clinic. Job ID: [id number]
[2018-12-31] MEDS: metroNIDAZOLE 500 MG in Premix Bag 1 BAG IVPB SCH (02:02)
[2018-12-31] MEDS: Acetaminophen 325 MG TAB PO PRN (05:17)
[2018-12-31 06:06] LABS: HBSAB Concentration 2.18 mIU/mL; HBSAg Index 0.37 S/CO (0-0.99); Hep B Surf AB Non-Reactive (NonReactive); Hep B Surf Ag Non-Reactive S/CO (NonReactive); Hep C IgG Ab Non-Reactive (NonReactive); Hep C Index 0.17 S/CO (0-0.79)
[2018-12-31] MEDS: Famotidine 20 MG TAB PO SCH ×2 (08:16→20:54)
[2018-12-31] MEDS: Enoxaparin Sodium 60 MG/0.6 ML SYRINGE SC SCH ×2 (08:16→20:55)
[2018-12-31] MEDS: Famotidine/PF 20 mg/2ml Vial SLOW IVP SCH (08:51)
[2018-12-31 09:11] LABS: #Monocytes 0.3 thou/uL (0.11-0.59); #Neutrophils 9.5 thou/uL (1.40-6.50); %Basophils 0.1 % (0.0-1.0); %Eosinophils 0.5 % (0.0-10.0); %Lymphocytes 8.9 % (21.0-51.0); %Monocytes 2.5 % (0.0-10.0); %Neutrophils 88.1 % (42.0-75.0); Hemoglobin 11.7 g/dL (14.0-18.0); Mean Corpuscular HGB CONC 31.6 g/dL (32.0-36.0); Mean Corpuscular Hemoglobin 27.2 pg (27.0-31.0); Mean Corpuscular Volume 86.1 fL (78.0-98.0); Mean Platelet Volume 5.9 fL (7.4-10.4); Platelet Count 777 thou/uL (130-400); RBC Distribution Width 16.3 % (11.5-14.5); Red Blood Cell (RBC) Count 4.29 mill/uL (4.70-6.10); White Blood Cell (WBC) Count 10.8 thou/uL (4.8-10.8)
[2018-12-31] MEDS: metroNIDAZOLE 500 MG TAB PO SCH ×3 (09:12→20:55)
[2018-12-31 09:31] LABS: ALT (SGPT) 10 U/L (8-55); AST (SGOT) 12 U/L (5-34); Albumin 2.4 g/dL (3.4-4.8); Alkaline Phosphatase 118 U/L (40-150); Anion Gap 11 mmol/L (10-20); BUN (Urea Nitrogen) 6 mg/dL (8.4-25.7); Bilirubin, Total 0.4 mg/dL (0.2-1.2); Calc. Creatinine Clearance 86 mL/min (70-130); Calcium 8.1 mg/dL (7.8-10.44); Carbon Dioxide 26 mmol/L (23-31); Chloride 101 mmol/L (98-107); Estimated GFR-MDRD Greater than 90; Globulin 2.8 g/dL (2.4-3.5); Glucose 99 mg/dL (80-115); Potassium 3.5 mmol/L (3.5-5.1); Protein, Total 5.2 g/dL (5.8-8.1); Sodium 134 mmol/L (136-145)
--- NOTE | 2018-12-31 12:12 | RAD ---
SUPINE ABDOMEN: HISTORY: Abdominal pain. Question ileus versus obstruction. FINDINGS: Anterior skin johnson. Diffuse gaseous distention of small and large bowel. No significant gas in t he rectum. There is a left double pigtail ureteral stent. There are 2 densities overlying the left lower quadra nt suggesting Stephane drains. IMPRESSION: Diffuse gaseous distention of small and large bowel suggests postop ileus; however, no significant ga s is seen at the rectum. POS: [facility]
--- NOTE | 2018-12-31 14:15 | SPC ---
PROCEDURE PERIPHERAL INSERTION OF CENTRAL CATHETER. INDICATION: IV antibiotic treatment. FINDINGS: A dual-lumen PICC line was placed in the left upper extremity via the left basilic vein using ultraso und guidance and fluoroscopic confirmation. The tip is positioned in the SVC. PROCEDURE NOTE: The left upper extremity is prepped and draped in a sterile manner. Ultrasound was used to assess th e venous structures. The basilic vein was chosen for puncture. Local anesthesia was administered wi th Lidocaine. The vein was punctured under ultrasound guidance with micropuncture technique. The wi re was introduced into the vein and was advanced into the SVC. Catheter length was then measured and cut. Sheath was placed over the wire. Catheter was advanced over the wire. [place] sheath was re moved. Wire removed. The catheter was flushed and secured with sterile dressing. There were no pro blems or complications. POS: [facility]
[2018-12-31] MEDS ORDERED: Fleet Enema 133 ML BOT PR SCH (14:45)
--- NOTE | 2018-12-31 14:56 | PRG ---
DATE OF SERVICE: 12/31/2018 SUBJECTIVE: Mr. Andre is postoperative day #4 from laparotomy with resection of 2 separate segments of colon. His final pathology results revealed active inflammatory bowel disease with full-thickness involvement. I suspect that his retroperitoneal/pelvic abscess was related to a perforation from his bowel that was then treated with antibiotics. The final cultures from this only revealed Streptococcus. He has no specific complaints. He has had few liquid bowel movements, but is apparently not passing any gas. He denies vomiting and denies belching. He is ambulating regularly. OBJECTIVE: VITAL SIGNS: On examination, he is afebrile. His pulse rate varies from 90 to 98. GENITOURINARY: He tells me he is urinating regularly. LUNGS: Clear to auscultation. CARDIAC: Regular rate and rhythm. ABDOMEN: Significantly distended. He has surprisingly normal-sounding bowel sounds. I do not detect any definite tympany. His incision appears to be healing nicely. He has a Stephane drain in his left lower quadrant draining his retroperitoneal abscess. He has a right lower quadrant EDI drain draining his peritoneal cavity. These both appear to be draining serosanguineous fluid. LABORATORY DATA: His hemoglobin is stable at 11.7, white blood cell count is 10.8, but with a left shift. Chemistry panel reveals essentially normal electrolytes. His albumin is low at 2.4. BUN and creatinine are normal. ASSESSMENT AND PLAN: He seems to be doing well following his laparotomy and colon resection. I will give him an enema today to see if that will stimulate passage of gas and help to resolve his ileus. Dr. Horn has ordered a PICC line, but has apparently not yet made definitive recommendations regarding his long-term IV antibiotics. I also asked Dr. Ma to see him again in light of his diagnosis of inflammatory bowel disease. Since this appears to be involving skip lesions, Crohn disease appears to be the more likely diagnosis. Dr. Ma is tentatively planning treatment for this in the future. He is stable after his surgery, but ileus is not completely resolved. Continue him on his full liquid diet with ambulation until he begins passing the gas that is building up within his intestines. If the enema stimulates activity, he seems to be doing well. He may be ready for discharge as early as tomorrow. Job ID: [id number]
--- NOTE | 2018-12-31 17:16 | PDOC.PN ---
- Subjective Encounter Start Date: 12/31/18 (f/u abscess) Encounter Start Time: 16:00 Subjective: Pt reports he has not had a bm, tried an enema. Has a low appetite -: denies any n/v, chest pain or difficulty breathing - Objective Resuscitation Status - Order Detail: 12/19/18 17:47 Resuscitation Status Routine Resuscitation Status: FULL: Full Resuscitation Vital Signs & Weight: Vital Signs (12 hours) Temp Pulse Resp BP Pulse Ox 12/31/18 15:19 98.1 F 100 14 150/96 H 94 L 12/31/18 11:44 97.4 F L 98 12 166/98 H 96 12/31/18 07:43 98.0 F 98 12 160/82 H 95 Weight Admit Weight 117 lb 14.4 oz Weight 117 lb 6.4 oz I&O: 12/30/18 12/31/18 01/01/19 06:59 06:59 06:59 Intake Total 1200 2350 Output Total 615 450 Balance 585 1900 Result Diagrams: 12/31/18 09:02 12/31/18 09:02 Phys Exam - Physical Examination Constitutional: NAD Respiratory: no wheezing, no rales, no rhonchi Cardiovascular: RRR, no significant murmur Gastrointestinal: soft, positive bowel sounds Musculoskeletal: no edema Neurological: non-focal, moves all 4 limbs Psychiatric: normal affect Skin: no rash Dx/Plan (1) Deep venous thrombosis of left femoral vein Code(s): I82.412 - ACUTE EMBOLISM AND THROMBOSIS OF LEFT FEMORAL VEIN Status: Acute Qualifiers: Chronicity: acute Qualified Code(s): I82.412 - Acute embolism and thrombosis of left femoral vein (2) Mesenteric mass Code(s): K63.9 - DISEASE OF INTESTINE, UNSPECIFIED Status: Acute (3) Psoas abscess, left Code(s): K68.12 - PSOAS MUSCLE ABSCESS Status: Acute (4) Ureteral obstruction, left Code(s): N13.5 - CROSSING VESSEL AND STRICTURE OF URETER W/O HYDRONEPHROSIS Status: Acute Comment: s/p stent placement in [place], urology evaluated, recommends leaving stent as is for now (5) Inflammatory bowel disease Code(s): K52.9 - NONINFECTIVE GASTROENTERITIS AND COLITIS, UNSPECIFIED Status : Acute (6) Hyponatremia Code(s): E87.1 - HYPO-OSMOLALITY AND HYPONATREMIA Status: Acute (7) Anemia Code(s): D64.9 - ANEMIA, UNSPECIFIED Status: Acute Comment: likely due to chronic disease as well as urinary or GI blood loss - Plan * s/p surgery with post-op care per Dr. River * * Pt with DVT - has been on full dose lovenox. He does not have insurance that covers medications - will need to determine with case management what to change him to, and if coumadin, how it will be monitored. Consult placed. If a NOAC - will need to determine how long it will be provided/covered or at an affordable cost * ' * Inflammatory bowel disease - will need f/u with Dr. Ma/GI, labs ordered in anticipation of meds to manage this * Hyponatremia - mild and stable * * gi prophy - on famotidine * code status full * * disposition pending clearance by Dr. River, arrangement of antibiotics - type, duration, and anticoagulation. * * reviewed plan of care iwht patient, no questions or further needs at end of eval
[2018-12-31] MEDS: cefTRIAXone\\ROCEPHIN 2 GM in Sodium Chloride 0.9% 100 ML IVPB SCH (20:54)
[2019-01-01 04:10] LABS: Hepatitis A IgM ABS Negative (Negative); Hepatitis A Total ABS Negative (Negative)
[2019-01-01] MEDS: Acetaminophen 325 MG TAB PO PRN ×2 (06:32→10:31)
[2019-01-01 07:08] LABS: Chloride 101 mmol/L (98-107); Potassium 3.6 mmol/L (3.5-5.1); Sodium 136 mmol/L (136-145)
[2019-01-01 07:18] LABS: Anion Gap 13 mmol/L (10-20); BUN (Urea Nitrogen) 7 mg/dL (8.4-25.7); Calc. Creatinine Clearance 83 mL/min (70-130); Calcium 8.2 mg/dL (7.8-10.44); Carbon Dioxide 26 mmol/L (23-31); Estimated GFR-MDRD Greater than 90; Glucose 102 mg/dL (80-115)
[2019-01-01 07:33] LABS: HIV (1/2) Antibody/Antigen Non-Reactive (NonReactive); HIV 1/2 INDEX 0.13 S/CO (<1.00)
[2019-01-01] MEDS: Famotidine 20 MG TAB PO SCH ×2 (08:20→21:23)
[2019-01-01] MEDS: Enoxaparin Sodium 60 MG/0.6 ML SYRINGE SC SCH ×2 (08:20→21:23)
[2019-01-01] MEDS: metroNIDAZOLE 500 MG TAB PO SCH ×3 (08:20→21:23)
--- NOTE | 2019-01-01 08:32 | PDOC.GSPN ---
Surgery Progress Note: Subj - Subjective Narrative: Complaining of more bloating and nausea Surgery Progress Note: Obj - Vital signs Vital signs: Vital Signs - Most Recent Temp Pulse Resp BP Pulse Ox 97.9 F 97 16 145/92 H 94 L 01/01/19 05:04 01/01/19 05:04 01/01/19 05:04 01/01/19 05:04 01/01/19 05:04 - Physical Exam General: no distress Cardiovascular: regular rate and rhythm Respiratory: clear to auscultation Abdomen: soft, appropriately tender, distended Wound: healing well Surgery Progress Note: Results - Labs Result Diagrams: 12/31/18 09:02 01/01/19 06:35 Lab results: Laboratory Results - last 24 hr 12/31/18 01/01/19 01/01/19 05:08 03:30 06:35 Sodium 136 Potassium 3.6 Chloride 101 Carbon Dioxide 26 Anion Gap 13 BUN 7 L Creatinine 0.69 L Estimated GFR (MDRD) Greater than 90 Glucose 102 Calcium 8.2 Hepatitis A IgM Ab Negative Hepatitis A Ab Total Negative HIV 1&2 Antigen & Ab Non-Reactive Surgery Progress Note: A/P - Problem (1) Inflammatory bowel disease Current Visit: Yes Code(s): K52.9 - NONINFECTIVE GASTROENTERITIS AND COLITIS, UNSPECIFIED Status: Acute (2) Psoas abscess, left Current Visit: Yes Code(s): K68.12 - PSOAS MUSCLE ABSCESS Status: Acute - Plan Plan: POD 5 colectomy -on liquids until more bowel function -if not able to do liquids without nausea today will restart IVF -encouraged ambulation
--- NOTE | 2019-01-01 15:59 | PDOC.PN ---
- Subjective Encounter Start Date: 01/01/19 (f/u DVT) Encounter Start Time: 15:56 Subjective: Pt denies any new sx today, was able to pass a small BM -: denies any cp/leg pain/difficulty with ambulation - Objective Resuscitation Status - Order Detail: 12/19/18 17:47 Resuscitation Status Routine Resuscitation Status: FULL: Full Resuscitation Vital Signs & Weight: Vital Signs (12 hours) Temp Pulse Resp BP BP Pulse Ox 01/01/19 15:25 97.7 F 99 16 137/94 H 95 01/01/19 11:20 98.1 F 101 H 16 145/91 H 94 L 01/01/19 07:40 97.9 F 99 16 152/90 H 94 L 01/01/19 05:04 97.9 F 97 16 145/92 H 94 L Weight Admit Weight 117 lb 14.4 oz Weight 117 lb 6.4 oz I&O: 12/31/18 01/01/19 01/02/19 06:59 06:59 06:59 Intake Total 2350 1370 Output Total 450 937 Balance 1900 433 Result Diagrams: 12/31/18 09:02 01/01/19 06:35 Phys Exam - Physical Examination Constitutional: NAD Respiratory: no wheezing, no rales, no rhonchi, clear to auscultation bilateral Cardiovascular: RRR, no significant murmur Gastrointestinal: soft, positive bowel sounds 1+ edema in LLE Neurological: non-focal, moves all 4 limbs Psychiatric: normal affect Dx/Plan (1) Deep venous thrombosis of left femoral vein Code(s): I82.412 - ACUTE EMBOLISM AND THROMBOSIS OF LEFT FEMORAL VEIN Status: Acute Qualifiers: Chronicity: acute Qualified Code(s): I82.412 - Acute embolism and thrombosis of left femoral vein (2) Mesenteric mass Code(s): K63.9 - DISEASE OF INTESTINE, UNSPECIFIED Status: Acute (3) Psoas abscess, left Code(s): K68.12 - PSOAS MUSCLE ABSCESS Status: Acute (4) Ureteral obstruction, left Code(s): N13.5 - CROSSING VESSEL AND STRICTURE OF URETER W/O HYDRONEPHROSIS Status: Acute Comment: s/p stent placement in [place], urology evaluated, recommends leaving stent as is for now (5) Inflammatory bowel disease Code(s): K52.9 - NONINFECTIVE GASTROENTERITIS AND COLITIS, UNSPECIFIED Status : Acute (6) Hyponatremia Code(s): E87.1 - HYPO-OSMOLALITY AND HYPONATREMIA Status: Resolved (7) Anemia Code(s): D64.9 - ANEMIA, UNSPECIFIED Status: Acute Qualifiers: Anemia type: unspecified type Qualified Code(s): D64.9 - Anemia, unspecified - Plan * * s/p surgery with post-op care per Dr. River/Ian * Will need determination of antibiotics - duration, type and route. Discussed with CM yesterday and IV antibiotics are not covered with the patient' s health insurance. * Pt with DVT - has been on full dose lovenox. He does not have insurance that covers medications - will need to determine with case management what to change him to, and if coumadin, how it will be monitored. Consult placed yesterday. If a NOAC - will need to determine how long it will be provided/covered or at an affordable cost * * Inflammatory bowel disease - will need f/u with Dr. Ma/GI, labs ordered in anticipation of meds to manage this * Hyponatremia - resolved * * gi prophy - on famotidine * code status full * * disposition pending clearance by General Surgery, arrangement of antibiotics - type/route/duration, and anticoagulation. * * reviewed plan of care with patient/his , no questions or further needs at end of eval.
[2019-01-01] MEDS: cefTRIAXone\\ROCEPHIN 2 GM in Sodium Chloride 0.9% 100 ML IVPB SCH (20:59)
[2019-01-02 03:45] LABS: #Eosinphils 0.1 thou/uL (0.0-0.7); #Lymphocytes 0.7 thou/uL (1.20-3.40); #Monocytes 0.5 thou/uL (0.11-0.59); #Neutrophils 10.4 thou/uL (1.40-6.50); %Basophils 0.2 % (0.0-1.0); %Eosinophils 0.6 % (0.0-10.0); %Monocytes 4.3 % (0.0-10.0); %Neutrophils 88.9 % (42.0-75.0); Hemoglobin 10.3 g/dL (14.0-18.0); Mean Corpuscular Hemoglobin 26.7 pg (27.0-31.0); Mean Corpuscular Volume 86.1 fL (78.0-98.0); Mean Platelet Volume 6.2 fL (7.4-10.4); Platelet Count 645 thou/uL (130-400); RBC Distribution Width 16.6 % (11.5-14.5); Red Blood Cell (RBC) Count 3.87 mill/uL (4.70-6.10); White Blood Cell (WBC) Count 11.7 thou/uL (4.8-10.8)
[2019-01-02 03:59] LABS: Anion Gap 11 mmol/L (10-20); BUN (Urea Nitrogen) 11 mg/dL (8.4-25.7); Calc. Creatinine Clearance 88 mL/min (70-130); Carbon Dioxide 27 mmol/L (23-31); Chloride 100 mmol/L (98-107); Estimated GFR-MDRD Greater than 90; Glucose 79 mg/dL (80-115); Potassium 3.5 mmol/L (3.5-5.1); Sodium 134 mmol/L (136-145)
--- NOTE | 2019-01-02 08:31 | PDOC.GSPN ---
Surgery Progress Note: Subj - Subjective Narrative: Nausea improved but no hungry Surgery Progress Note: Obj - Vital signs Vital signs: Vital Signs - Most Recent Temp Pulse Resp BP Pulse Ox 97.9 F 94 16 143/80 H 94 L 01/02/19 04:02 01/02/19 04:02 01/02/19 04:02 01/02/19 04:02 01/02/19 04:02 - Physical Exam General: no distress Cardiovascular: regular rate and rhythm Respiratory: clear to auscultation Abdomen: soft, positive bowel sounds, distended Surgery Progress Note: Results - Labs Result Diagrams: 01/02/19 03:29 01/02/19 03:29 Lab results: Laboratory Results - last 24 hr 01/02/19 01/02/19 03:29 03:29 WBC 11.7 H RBC 3.87 L Hgb 10.3 L Hct 33.4 L MCV 86.1 MCH 26.7 L MCHC 31.0 L RDW 16.6 H Plt Count 645 H MPV 6.2 L Neutrophils % 88.9 H Lymphocytes % 6.0 L Monocytes % 4.3 Eosinophils % 0.6 Basophils % 0.2 Neutrophils # 10.4 H Lymphocytes # 0.7 L Monocytes # 0.5 Eosinophils # 0.1 Basophils # 0.0 Sodium 134 L Potassium 3.5 Chloride 100 Carbon Dioxide 27 Anion Gap 11 BUN 11 Creatinine 0.65 L Estimated GFR (MDRD) Greater than 90 Glucose 79 L Calcium 8.0 Surgery Progress Note: A/P - Problem (1) Inflammatory bowel disease Current Visit: Yes Code(s): K52.9 - NONINFECTIVE GASTROENTERITIS AND COLITIS, UNSPECIFIED Status: Acute (2) Psoas abscess, left Current Visit: Yes Code(s): K68.12 - PSOAS MUSCLE ABSCESS Status: Acute - Plan Plan: Still very distended although he feels better -Stay on liquids until bloating improves
[2019-01-02] MEDS: Famotidine 20 MG TAB PO SCH ×2 (09:24→20:31)
[2019-01-02] MEDS: Enoxaparin Sodium 60 MG/0.6 ML SYRINGE SC SCH ×2 (09:24→20:30)
[2019-01-02] MEDS: metroNIDAZOLE 500 MG TAB PO SCH ×3 (09:25→20:31)
--- NOTE | 2019-01-02 16:09 | PDOC.PN ---
- Subjective Encounter Start Date: 01/02/19 (f/u DVT) Encounter Start Time: 16:05 Subjective: Pt without any complaints, states he is ready -: to go home. - Objective Resuscitation Status - Order Detail: 12/19/18 17:47 Resuscitation Status Routine Resuscitation Status: FULL: Full Resuscitation Vital Signs & Weight: Vital Signs (12 hours) Temp Pulse Resp BP Pulse Ox 01/02/19 15:39 97.7 F 86 14 150/89 H 94 L 01/02/19 11:03 98.1 F 103 H 16 151/93 H 95 01/02/19 08:00 94 L 01/02/19 07:14 97.9 F 88 14 150/97 H 94 L Weight Admit Weight 117 lb 14.4 oz Weight 117 lb 6.4 oz I&O: 01/01/19 01/02/19 01/03/19 06:59 06:59 06:59 Intake Total 1370 2009 Output Total 937 743 Balance 433 1267 Result Diagrams: 01/02/19 03:29 01/02/19 03:29 Phys Exam - Physical Examination Constitutional: NAD Respiratory: no wheezing, no rales, no rhonchi, clear to auscultation bilateral Cardiovascular: RRR, no significant murmur Gastrointestinal: soft, positive bowel sounds 1+ edema of LLE - unchanged Neurological: non-focal, moves all 4 limbs Psychiatric: normal affect Dx/Plan (1) Deep venous thrombosis of left femoral vein Code(s): I82.412 - ACUTE EMBOLISM AND THROMBOSIS OF LEFT FEMORAL VEIN Status: Acute Qualifiers: Chronicity: acute Qualified Code(s): I82.412 - Acute embolism and thrombosis of left femoral vein (2) Mesenteric mass Code(s): K63.9 - DISEASE OF INTESTINE, UNSPECIFIED Status: Acute (3) Psoas abscess, left Code(s): K68.12 - PSOAS MUSCLE ABSCESS Status: Acute (4) Ureteral obstruction, left Code(s): N13.5 - CROSSING VESSEL AND STRICTURE OF URETER W/O HYDRONEPHROSIS Status: Acute Comment: s/p stent placement in [place], urology following and antcipates removal on thursday (5) Inflammatory bowel disease Code(s): K52.9 - NONINFECTIVE GASTROENTERITIS AND COLITIS, UNSPECIFIED Status : Acute (6) Hyponatremia Code(s): E87.1 - HYPO-OSMOLALITY AND HYPONATREMIA Status: Resolved (7) Anemia Code(s): D64.9 - ANEMIA, UNSPECIFIED Status: Acute Qualifiers: Anemia type: unspecified type Qualified Code(s): D64.9 - Anemia, unspecified - Plan * * s/p surgery with post-op care per Dr. River/Ian * Will need determination of antibiotics - duration, type and route. Discussed with CM on Thursday and IV antibiotics are not covered with the patient' s health insurance. * Pt with DVT - has been on full dose lovenox. He does not have insurance that covers medications - will need to determine with case management what to change him to, and if coumadin, how it will be monitored. Consult placed yesterday. If a NOAC - will need to determine how long it will be provided/covered or at an affordable cost. For new diagnosis, anticipate pt will require anticoagulation for 3 months. * * Inflammatory bowel disease - will need f/u with Dr. Ma/GI, labs ordered in anticipation of meds to manage this * * gi prophy - on famotidine * code status full * * disposition pending clearance by General Surgery, arrangement of antibiotics - type/route/duration, and anticoagulation plan. * * reviewed plan of care with patient/his , no questions or further needs at end of eval..
[2019-01-02] MEDS: cefTRIAXone\\ROCEPHIN 2 GM in Sodium Chloride 0.9% 100 ML IVPB SCH (20:30)
--- NOTE | 2019-01-03 07:53 | RAD ---
Abdomen one view HISTORY: Abdominal pain. Obstruction. COMPARISON: 12/31/2018. FINDINGS: Gaseous distention of the colon and small bowel is similar in appearance to the prior study . Left ureteral stent unchanged in position. Anterior midline skin johnson again demonstrated. Radiopaque drain over the upper pelvis is similar in appearance. IMPRESSION: Postoperative changes, gaseous distention of the bowel, and other findings are stable.
--- NOTE | 2019-01-03 08:07 | PDOC.PN ---
- Subjective Encounter Start Date: 01/03/19 Encounter Start Time: 12:00 Subjective: Patient feeling a little better. Still not passing gas. NO fever. No -: pain. - Objective Resuscitation Status - Order Detail: 12/19/18 17:47 Resuscitation Status Routine Resuscitation Status: FULL: Full Resuscitation MAR Reviewed: Yes Vital Signs & Weight: Vital Signs (12 hours) Temp Pulse Resp BP Pulse Ox 01/03/19 03:59 97.9 F 100 18 137/81 93 L 01/03/19 00:53 98.1 F 100 18 136/87 93 L Weight Admit Weight 117 lb 14.4 oz Weight 117 lb 6.4 oz I&O: 01/02/19 01/03/19 01/04/19 06:59 06:59 06:59 Intake Total 2009 1009 Output Total 743 410 Balance 1267 600 Result Diagrams: 01/02/19 03:29 01/02/19 03:29 Phys Exam - Physical Examination Constitutional: NAD HEENT: moist MMs Respiratory: no wheezing, no rales, no rhonchi Cardiovascular: RRR, no significant murmur Gastrointestinal: soft distended, hyperactive bowel sounds Neurological: non-focal, moves all 4 limbs Psychiatric: normal affect, A&O x 3 Dx/Plan (1) Psoas abscess, left Code(s): K68.12 - PSOAS MUSCLE ABSCESS Status: Acute Comment: S/P surgical drainage, will need IV abx therapy Rocephin and Metronidazole until January 21, trying to arrange [facility] bed (2) Ureteral obstruction, left Code(s): N13.5 - CROSSING VESSEL AND STRICTURE OF URETER W/O HYDRONEPHROSIS Status: Acute Comment: s/p stent placement in [place], urology following and antcipates removal on thursday (3) Anemia Code(s): D64.9 - ANEMIA, UNSPECIFIED Status: Acute Qualifiers: Anemia type: unspecified type Qualified Code(s): D64.9 - Anemia, unspecified (4) Tobacco abuse Code(s): Z72.0 - TOBACCO USE Status: Acute (5) Deep venous thrombosis of left femoral vein Code(s): I82.412 - ACUTE EMBOLISM AND THROMBOSIS OF LEFT FEMORAL VEIN Status: Acute Qualifiers: Chronicity: acute Qualified Code(s): I82.412 - Acute embolism and thrombosis of left femoral vein Comment: Will need Coumadin or oral anticoagulant eventually (6) Crohns disease Code(s): K50.90 - CROHN'S DISEASE, UNSPECIFIED, WITHOUT COMPLICATIONS Status: Acute Qualifiers: Gastrointestinal tract location: small and large intestine Comment: S/P intestinal perforation and abscess, now s/p partial colectomy and small intestine resection, Will need TNF agent, f/u with GI as outpatient for initiation (7) S/P partial colectomy Code(s): Z90.49 - ACQUIRED ABSENCE OF OTHER SPECIFIED PARTS OF DIGESTIVE TRACT Status: Acute Comment: partial colon and small bowel resection, awaiting improvement in distension to advance diet - Plan cont current plan of care, continue antibiotics, out of bed/ambulate, DVT [facility]ph w[facility] * . - Discharge Day Encounter end time: 12:15
[2019-01-03] MEDS: metroNIDAZOLE 500 MG TAB PO SCH ×3 (09:03→20:26)
[2019-01-03] MEDS: Famotidine 20 MG TAB PO SCH ×2 (09:03→20:26)
[2019-01-03] MEDS: Enoxaparin Sodium 60 MG/0.6 ML SYRINGE SC SCH ×2 (09:04→20:40)
[2019-01-03] MEDS ORDERED: Polyethylene Glycol 3350 17 GM Packet PO SCH ×2 (09:45→21:00)
--- NOTE | 2019-01-03 19:27 | PRG ---
DATE OF SERVICE: 01/03/2019 SUBJECTIVE: Mr. Andre is postop day #7 from resection of 2 separate segments of his colon and drainage of a retroperitoneal abscess. He has no complaints. He notes that he is still tolerating his diet and denies nausea or vomiting. He still is really not passing any flatus. He had a couple of bowel movements yesterday. He still remains fairly distended. A KUB that was obtained this morning still shows marked gaseous distention of colon and small bowel. OBJECTIVE: VITAL SIGNS: On examination, he is afebrile. Pulse is 100 to 104. Blood pressure is 125/81. LUNGS: Clear to auscultation. ABDOMEN: Soft and nontender with hypoactive bowel sounds. His incision is healing nicely. Drain is draining a decreased amount of light serosanguineous fluid. LABORATORY DATA: He had no labs today. ASSESSMENT: The patient with anticipated ileus after his laparotomy and bowel resection. Continue liquid diet until ileus resolves. I will initiate MiraLAX today to see if this helps him to resume bowel function. I would anticipate discharge home in the next 24 to 48 hours. Job ID: [id number]
[2019-01-03] MEDS: cefTRIAXone\\ROCEPHIN 2 GM in Sodium Chloride 0.9% 100 ML IVPB SCH (19:42)
[2019-01-04 06:37] LABS: #Lymphocytes 0.8 thou/uL (1.20-3.40); #Monocytes 0.6 thou/uL (0.11-0.59); #Neutrophils 10.7 thou/uL (1.40-6.50); %Basophils 0.3 % (0.0-1.0); %Eosinophils 0.2 % (0.0-10.0); %Lymphocytes 6.6 % (21.0-51.0); %Monocytes 5.2 % (0.0-10.0); %Neutrophils 87.7 % (42.0-75.0); Hemoglobin 8.1 g/dL (14.0-18.0); Mean Corpuscular HGB CONC 32.5 g/dL (32.0-36.0); Mean Corpuscular Hemoglobin 28.1 pg (27.0-31.0); Mean Corpuscular Volume 86.7 fL (78.0-98.0); Mean Platelet Volume 6.8 fL (7.4-10.4); Platelet Count 585 thou/uL (130-400); Red Blood Cell (RBC) Count 2.88 mill/uL (4.70-6.10); White Blood Cell (WBC) Count 12.2 thou/uL (4.8-10.8)
--- NOTE | 2019-01-04 08:09 | PDOC.PN ---
- Subjective Encounter Start Date: 01/04/19 Encounter Start Time: 10:40 Subjective: Patient feeling much better. Passing lots of stool yesterday. Eager to go -: home. No abdominal pain. No fever. - Objective Resuscitation Status - Order Detail: 12/19/18 17:47 Resuscitation Status Routine Resuscitation Status: FULL: Full Resuscitation MAR Reviewed: Yes Vital Signs & Weight: Vital Signs (12 hours) Temp Pulse Resp BP BP Pulse Ox 01/04/19 07:35 97.7 F 110 H 16 131/78 95 01/04/19 04:00 97.6 F 100 20 128/79 95 01/04/19 00:00 97.8 F 99 20 131/80 94 L Weight Admit Weight 117 lb 14.4 oz Weight 117 lb 6.4 oz I&O: 01/03/19 01/04/19 01/05/19 06:59 06:59 06:59 Intake Total 1010 950 Output Total 410 215 Balance 600 735 Result Diagrams: 01/04/19 05:17 01/02/19 03:29 Phys Exam - Physical Examination Constitutional: NAD HEENT: moist MMs Respiratory: no wheezing, no rales, no rhonchi Cardiovascular: RRR, no significant murmur Gastrointestinal: soft, no distention, positive bowel sounds much less distension and normal BS today Neurological: non-focal, moves all 4 limbs Psychiatric: normal affect, A&O x 3 Dx/Plan (1) Psoas abscess, left Code(s): K68.12 - PSOAS MUSCLE ABSCESS Status: Acute Comment: S/P surgical drainage, will need IV abx therapy Rocephin and oral Metronidazole until January 21, unable to arrange [facility] bed so will drive him to hospital daily for IV infusion (2) Ureteral obstruction, left Code(s): N13.5 - CROSSING VESSEL AND STRICTURE OF URETER W/O HYDRONEPHROSIS Status: Acute Comment: s/p stent placement in Dr. Mukund Argueta following and will remove stent 01/05/19 (3) Anemia Code(s): D64.9 - ANEMIA, UNSPECIFIED Status: Acute Qualifiers: Anemia type: unspecified type Qualified Code(s): D64.9 - Anemia, unspecified (4) Tobacco abuse Code(s): Z72.0 - TOBACCO USE Status: Acute (5) Deep venous thrombosis of left femoral vein Code(s): I82.412 - ACUTE EMBOLISM AND THROMBOSIS OF LEFT FEMORAL VEIN Status: Acute Qualifiers: Chronicity: acute Qualified Code(s): I82.412 - Acute embolism and thrombosis of left femoral vein Comment: Transitioning to oral Eliquis tonight, coupon for first month supplied by case management (6) Crohns disease Code(s): K50.90 - CROHN'S DISEASE, UNSPECIFIED, WITHOUT COMPLICATIONS Status: Acute Qualifiers: Gastrointestinal tract location: small and large intestine Comment: S/P intestinal perforation and abscess, now s/p partial colectomy and small intestine resection, Will need TNF agent, f/u with GI as outpatient for initiation (7) S/P partial colectomy Code(s): Z90.49 - ACQUIRED ABSENCE OF OTHER SPECIFIED PARTS OF DIGESTIVE TRACT Status: Acute Comment: partial colon and small bowel resection, advance diet as ileus resolves - Plan cont current plan of care, continue antibiotics, PT/OT stent out tomorrow and home when ok from surgical standpoint * . - Discharge Day Encounter end time: 10:50
[2019-01-04] MEDS: Famotidine 20 MG TAB PO SCH (08:46)
[2019-01-04] MEDS: Enoxaparin Sodium 60 MG/0.6 ML SYRINGE SC SCH (08:47)
[2019-01-04] MEDS: metroNIDAZOLE 500 MG TAB PO SCH ×2 (08:49→14:33)
[2019-01-04] MEDS ORDERED: Polyethylene Glycol 3350 17 GM Packet PO SCH (09:00)
[2019-01-04 11:31] VITALS: BP 122/74; TEMP 98
--- NOTE | 2019-01-04 13:41 | PRG ---
DATE OF SERVICE: 01/04/2019 SUBJECTIVE: Mr. Andre is postoperative day #8 from laparotomy and resection of 2 separate segments of his colon with drainage of a retroperitoneal pelvic abscess. He has a diagnosis of inflammatory bowel disease, suspected to be Crohn disease. It is taken longer than typical for his postoperative ileus to resolve, but given the extent of his surgery, this is not entirely surprising. He is tolerating his diet. He tells me he had several bowel movements yesterday. He was started on MiraLAX and tells me that he is passing flatus and feels much better. He is anxious for discharge. He was seen today by his urologist, Dr. Duval, who plans a cysto tomorrow with possible stent replacement. He continues to receive ceftriaxone and oral metronidazole. This has been managed per Dr. Horn. The patient does have a PICC line. I am not certain what the long-term plans are for continued antibiotics. In regard to his anticoagulation, he is currently on Eliquis and his Lovenox has been discontinued. OBJECTIVE: VITAL SIGNS: On examination, he is afebrile, pulse 97, and blood pressure 122/74. LUNGS: Clear to auscultation. CARDIAC: Regular rate and rhythm. ABDOMEN: Soft, nontender, and nondistended with normoactive bowel sounds. ABDOMEN: Substantially less distended and softer than it was previously. He says the EDI drain is in right lower quadrant. This is draining light serosanguineous fluid. He still has a Randolph drain in his left lower quadrant draining into an ostomy bag. LABORATORY DATA: His white blood cell count is up slightly to 12.2 with a hemoglobin that has dropped from 10.3 two days ago down to 8.1. His platelet count is 585. ASSESSMENT: The patient seems to be doing well. He has inflammatory bowel disease, status post colon resection and drainage of retroperitoneal abscess. Stent placement per Dr. Duval tomorrow. Decisions regarding long-term IV antibiotics will be per Dr. Horn. From my standpoint, he is stable for discharge. I am uncertain why he is recurrently anemic. I guess it is possible that he has some oozing related to his anticoagulation in his recent surgery. We will recheck a CBC tomorrow. If it is okay with Dr. Duval and Dr. Justina, he may be stable for discharge tomorrow with outpatient followup. I would plan on discharging him with his EDI drain removed, but his Randolph drain in place. He would follow up with myself on Thursday for staple removal (at 3 days). His Stephane drain will probably need to be removed a week later. Job ID: [id number]
[2019-01-04] MEDS ORDERED: Apixaban 5 MG TAB PO SCH (21:00)
== END 2019-01-04 16:14 | disposition home or self-care (01) | DRG 329 ==
LOC: ERS 10:26 → ERHOLD 15:16 → 2NO 18:24 → T4-B 12-24 13:15 → 2NO 12-24 13:21 → SURG A 12-24 13:34 → SURG B 12-24 17:35
PROVIDERS: ADMIT Family Medicine; ATTEND Family Medicine
PROC: 0K9P3ZX Drainage of Left Hip Muscle, Percutaneous Approach, Diagnostic (ICD-10-PCS; 2018-12-21)
PROC: 0DJD8ZZ Inspection of Lower Intestinal Tract, Via Natural or Artificial Opening Endoscopic (ICD-10-PCS; 2018-12-23)
PROC: 0DJD8ZZ Inspection of Lower Intestinal Tract, Via Natural or Artificial Opening Endoscopic (ICD-10-PCS; 2018-12-24)
PROC: 0DBH0ZZ Excision of Cecum, Open Approach (ICD-10-PCS; principal; 2018-12-27)
PROC: 0DBN0ZZ Excision of Sigmoid Colon, Open Approach (ICD-10-PCS; 2018-12-27)
PROC: 0W9G00Z Drainage of Peritoneal Cavity with Drainage Device, Open Approach (ICD-10-PCS; 2018-12-27)
PROC: 02HV33Z Insertion of Infusion Device into Superior Vena Cava, Percutaneous Approach (ICD-10-PCS; 2018-12-31)
PROC: B548ZZA Ultrasonography of Superior Vena Cava, Guidance (ICD-10-PCS; 2018-12-31)
DX: K58.9 Irritable bowel syndrome, unspecified (principal); K68.12 Psoas muscle abscess; K56.2 Volvulus; K63.1 Perforation of intestine (nontraumatic); E87.1 Hypo-osmolality and hyponatremia; I82.412 Acute embolism and thrombosis of left femoral vein; K56.7 Ileus, unspecified; N13.1 Hydronephrosis with ureteral stricture, not elsewhere classified; K56.691 Other complete intestinal obstruction; B95.1 Streptococcus, group B, as the cause of diseases classified elsewhere; D64.9 Anemia, unspecified; E87.6 Hypokalemia; F17.210 Nicotine dependence, cigarettes, uncomplicated; D47.3 Essential (hemorrhagic) thrombocythemia; K63.5 Polyp of colon; K62.1 Rectal polyp; Z88.0 Allergy status to penicillin; F10.21 Alcohol dependence, in remission; Z79.899 Other long term (current) drug therapy; Z80.0 Family history of malignant neoplasm of digestive organs
CPT/HCPCS: 36415; 36416; 36430; 36569; 49060; 72157; 72158; 74018; 74177; 77012; 80048; 80053; 80202; 81003; 81015; 82565; 82570; 82607; 82728; 82746; 83540; 83605; 83690; 83735; 83935; 84100; 84300; 84466; 85014; 85018; 85025; 85049; 85379; 85610; 85730; 86480; 86706; 86709; 86803; 86850; 86900; 86901; 87040; 87070; 87086; 87102; 87205; 87206; 87340; 87389; 88173; 88305; 88307; 88312; 88331; 90471; 90732; 93005; 96361; 96365; 96366; 96372; 96375; A9577; C1751; G0009; J0131; J0670; J0694; J0696; J1100; J1644; J1650; J1885; J2001; J2250; J2270; J2370; J2704; J2765; J3010; J3370; J3475; J3480; J3490; J7050; P9016; Q0169; Q9966; S0028

== ENCOUNTER 2019-01-05 08:34 | Day surgery (SDC) | payer SELFPAY ==
[2019-01-05] MEDS ORDERED: Levofloxacin 500 mg/D5W 100 ml Premix Bag ONE (10:25)
[2019-01-05] MEDS ORDERED: Iothalamate Meglumine 60% 50 ML VIAL FS ONE (10:31)
[2019-01-05] MEDS ORDERED: Fentanyl 100 MCG/2 ML VIAL ONE (10:34)
--- NOTE | 2019-01-05 12:50 | RAD ---
RETROGRADE PYELOGRAM: HISTORY: Left ureteral stent. FINDINGS: Postop midline abdominal surgical johnson. There is injection of the left ureter with what appears t o be some multinodular mass changes involving the left ureter overlying the region of the left sacral ala. There is dilatation of the left upper collecting system. With additional injection, there is some contrast leakage from the left upper collecting system with a resulting urinoma. 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 Dil atation of the left upper renal collecting system. Additional injection of contrast results in some contrast leakage from the left upper collecting system and resultant urinoma. POS: OFF
[2019-01-05] MEDS ORDERED: PHENYLEPHRINE-NS 100 MCG/ML 10 ML SYRINGE ONE (15:45)
[2019-01-05] MEDS ORDERED: Ondansetron PF 4 MG/2 ML Vial ONE (15:45)
[2019-01-05] MEDS ORDERED: PROPOFOL 200 MG/20 ML VIAL ONE (15:45)
[2019-01-05] MEDS ORDERED: Lidocaine 1% PF 5 ML VIAL ONE (15:45)
--- NOTE | 2019-01-05 16:12 | OP ---
DATE OF PROCEDURE: 01/05/2019 PREOPERATIVE DIAGNOSES: Left ureteral stent, history of left hydronephrosis, history of Crohn disease with recent colectomy and biopsies of small bowel. POSTOPERATIVE DIAGNOSES: Left ureteral stent, history of left hydronephrosis, history of Crohn disease with recent colectomy and biopsies of small bowel. PROCEDURES PERFORMED: Cystoscopy; discontinue left stent; left retrograde placement, left stent. ANESTHETIC: General. ESTIMATED BLOOD LOSS: Minimal. FINDINGS: The old stent was encrusted, but we did remove it intact. Retrograde study showed the distal 3 cm of the ureter to be normal caliber, then narrowed down at the pelvic inlet, probably representing stricture. The stent could be placed proximal to this and then contrast could be getting by this that filled mildly dilated left collecting system and slightly more calyceal dilatation than the ureter itself. There was a little extravasation after trying to get the renal pelvis floor to see if we could get the contrast to go down the left ureter, which I could never see any contrast pass down or efflux out. The stent was replaced for this reason. We used a 6 x 24 Chartbeatis no string attached. DESCRIPTION OF PROCEDURE: Obtained written and verbal consent from the patient. After receiving some IV Levaquin, he was taken to the operating suite. He was placed in a supine position on the treatment table. PlexiPulses were placed on his lower extremities and turned on. He was given a general anesthetic and oral obturator intubation. He was placed in the dorsal lithotomy position, sterilely prepped and draped for cystoscopy. C-arm was brought in and positioned. Placement Secretary film was taken. Cystoscopy was performed with a 22-Tunisian sheath. This was well lubricated and passed under direct vision through the male urethra into the urinary bladder with aid of a 30-degree lens and video camera and monitor. The bladder was filled and emptied. Some debris on the floor of the bladder stone particles and then encrusted curl of the left distal stent. The bladder was filled and emptied number of times. Distal end of the stent was grasped and was removed intact without difficulty. A 5-Tunisian Pollack catheter was advanced up the left ureter. Contrast was injected. It went up to the level of the pelvic inlet and then would not go further. We were able to advance the open-ended catheter by this point and inject contrast. We got contrast to go proximal to this filling out a mildly dilated ureter and then more chronically dilated calyceal system. We were able to get the open-ended catheter all the way up in this region. We injected further contrast to try to fill all this out with some extravasation from this region. We then removed this open-ended catheter and watched to see if he would efflux contrast, which he did not do. For this reason, a guidewire was replaced. It met obstruction at the pelvic inlet, so open-ended catheter was advanced up to this point. Then, an angled Glidewire was used to go by this up and get up in the renal pelvis, and then, I replaced the open-ended catheter. The open-ended catheter was removed and then the stent was placed over the guidewire and pushed up into place with aid of a pusher, so its proximal end coiled in the renal pelvis and its distal end coiled in the bladder when the wire was removed. It appeared to be effluxing well. The bladder was drained. The instruments were removed. He was taken out of the dorsal lithotomy position, awakened, extubated, and taken by stretcher to recovery room. Job ID: [id number]
== END 2019-01-05 13:54 | disposition home or self-care (01) ==
LOC: SDC 08:34
PROVIDERS: ATTEND Urology
PROC: 0T778DZ Dilation of Left Ureter with Intraluminal Device, Via Natural or Artificial Opening Endoscopic (ICD-10-PCS; principal; 2019-01-05)
PROC: 0TP98DZ Removal of Intraluminal Device from Ureter, Via Natural or Artificial Opening Endoscopic (ICD-10-PCS; principal; 2019-01-05)
DX: N13.30 Unspecified hydronephrosis (principal); K50.90 Crohn's disease, unspecified, without complications; Z88.0 Allergy status to penicillin; Z90.49 Acquired absence of other specified parts of digestive tract
CPT/HCPCS: 74420; C1758; C1769; J1956; J2001; J2405; J2704; J3010; Q9961

== ENCOUNTER 2019-07-27 08:51 | Day surgery (SDC) | payer SELFPAY ==
[2019-07-26 09:46] VITALS: BMI 18.4
[2019-07-27] MEDS ORDERED: Levofloxacin 500 mg/D5W 100 ml Premix Bag ONE (09:26)
[2019-07-27 09:47] LABS: #Eosinphils 0.1 thou/uL (0.0-0.7); #Lymphocytes 1.1 thou/uL (1.20-3.40); #Monocytes 0.5 thou/uL (0.11-0.59); #Neutrophils 6.1 thou/uL (1.40-6.50); %Basophils 0.1 % (0.0-1.0); %Lymphocytes 13.6 % (21.0-51.0); %Monocytes 6.8 % (0.0-10.0); %Neutrophils 78.5 % (42.0-75.0); Hemoglobin 14.8 g/dL (14.0-18.0); Mean Corpuscular HGB CONC 33.2 g/dL (32.0-36.0); Mean Corpuscular Hemoglobin 30.4 pg (27.0-31.0); Mean Corpuscular Volume 91.5 fL (78.0-98.0); Platelet Count 291 thou/uL (130-400); RBC Distribution Width 15.3 % (11.5-14.5); Red Blood Cell (RBC) Count 4.86 mill/uL (4.70-6.10); White Blood Cell (WBC) Count 7.7 thou/uL (4.8-10.8)
[2019-07-27 09:53] LABS: INR-International Normal Ratio 2.9
[2019-07-27 09:54] LABS: PTT 52.1 SEC (22.9-36.1)
[2019-07-27 09:59] LABS: Anion Gap 12 mmol/L (10-20); BUN (Urea Nitrogen) 12 mg/dL (8.4-25.7); Calc. Creatinine Clearance 81 mL/min (70-130); Carbon Dioxide 24 mmol/L (23-31); Chloride 106 mmol/L (98-107); Estimated GFR-MDRD Greater than 90; Glucose 85 mg/dL (80-115); Sodium 138 mmol/L (136-145)
[2019-07-27] MEDS ORDERED: diphenhydrAMINE 50 MG/ML VIAL ONE (10:25)
[2019-07-27] MEDS ORDERED: Dexamethasone 20 MG/5 ML VIAL ONE (10:25)
[2019-07-27] MEDS ORDERED: Ondansetron PF 4 MG/2 ML Vial ONE (10:25)
[2019-07-27] MEDS ORDERED: PROPOFOL 200 MG/20 ML VIAL ONE (10:25)
[2019-07-27] MEDS ORDERED: ePHEDrine/0.9% NaCl/PF SYRINGE 50 mg/10 ml ONE (10:25)
[2019-07-27] MEDS ORDERED: Iothalamate Meglumine 60% 50 ML VIAL FS ONE (11:39)
[2019-07-27] MEDS ORDERED: Fentanyl 100 MCG/2 ML VIAL ONE (11:47)
--- NOTE | 2019-07-27 12:53 | RAD ---
XR IVP Retrograde History: Stones Comparison: Retrograde study April 11, 2019 Findings: Catheter removal of of the initial stent, there is a high-grade narrowing of the distal lef t ureter. Continued hydronephrosis. A new double-J ureteral stent was placed in good position. Impression: Satisfactory appearance double-J left ureteral stent.
--- NOTE | 2019-07-27 14:13 | OP ---
DATE OF PROCEDURE: 07/27/2019 PREOPERATIVE DIAGNOSES: 1. Left ureteral obstruction. 2. Left ureteral stent. POSTOPERATIVE DIAGNOSES: 1. Left ureteral obstruction. 2. Left ureteral stent. PROCEDURES PERFORMED: 1. Cystoscopy. 2. Removal of left stent. 3. Left retrograde. 4. Left rigid ureteroscopy. 5. Placement of left stent. ANESTHETIC: General. ESTIMATED BLOOD LOSS: Less than 50 mL. FINDINGS: He has no evidence of stricture disease. Mildly enlarged prostate gland. Bladder without tumor, foreign body, stone, or fistula. Left distal stent was still patent. He has a filling defect in the junction of the mid and lower third of the left ureter and contrast does seem to come by it, but a guidewire will not easily go up across it, so we did a rigid ureteroscopy up to and through this area. It looks like it is just inflammatory tissue. This is the area that was obstructing when he initially presented 6 months or so ago with Crohn disease. The ureter above it looks normal. The ureter below it looks normal as prior, about 3 cm in length. I did replace the stent because of this. DESCRIPTION OF PROCEDURE: After obtaining written and verbal consent from the patient after receiving IV Levaquin, he was taken to the operating suite. He was placed in the supine position on the treatment table. PlexiPulses were placed on his lower extremities and turned on. He was given a general anesthetic and oral intubation, placed in the dorsal lithotomy position, sterilely prepped and draped. Cystoscopy was performed with a 22-Hungarian sheath. This was well lubricated and passed under direct vision through the male urethra and into the urinary bladder with aid of a 30-degree lens of video camera and monitor. The bladder was filled and emptied a number of times and examined with both the 30 and 70-degree lens. The double-J stent was grasped and brought out through the urethral meatus. A guidewire was fed across it up in the region of the renal pelvis and the stent was removed and discarded. The Pollack catheter was advanced over the guidewire up into the region of the renal pelvis and the wire was removed. We then injected about 15 mL of contrast, filling out minimally dilated left calyceal system. Fairly normal appearing caliber of ureter down to about the sacrum, where it became lost with evidence of a filling defect in this region. The ureter distal to this appeared dilated, but normal and not obstructed and contrast easily came out of it. He did appear to have contrast come down through this area, it was just irregular. We tried to feed a guidewire across this area and could not, so for that reason, we brought in the rigid ureteroscope and passed under direct vision through the male urethra into the bladder with aid of a video camera and monitor up the left ureter to the point where this area was encountered. The lumen was identified and we could easily pass through it. It was just really inflammatory, like polyps, nothing that looks suspicious for malignancy. This was the site that he was obstructed at from his Crohn disease. We fed a guidewire through the ureteroscope after it passed into normal ureter above this point and then backed the scope out, leaving the wire in, and then over this wire, we placed a 6 x 24 Polaris double-J stent without a string attached, pushing it up with the pusher, so its proximal end was coiled in the renal pelvis and its distal end was coiled in the bladder when the wire was removed. The bladder was drained. The instruments were removed. He was taken by stretcher to the recovery room. Job ID: [id number]
== END 2019-07-27 15:00 | disposition home or self-care (01) ==
LOC: SDC 08:51
PROVIDERS: ATTEND Urology
PROC: 0T9780Z Drainage of Left Ureter with Drainage Device, Via Natural or Artificial Opening Endoscopic (ICD-10-PCS; principal; 2019-07-27)
DX: N13.5 Crossing vessel and stricture of ureter without hydronephrosis (principal); N40.0 Benign prostatic hyperplasia without lower urinary tract symptoms; K50.90 Crohn's disease, unspecified, without complications; Z79.01 Long term (current) use of anticoagulants; Z88.0 Allergy status to penicillin
CPT/HCPCS: 74420; 80048; 85025; 85610; 85730; C1758; C1769; J1100; J1200; J1956; J2405; J2704; J3010

== ENCOUNTER 2020-02-03 07:05 | Outpatient (CLI) | payer OTHER ==
[2020-02-03 13:59] LABS: Hemoglobin 14.4 g/dL (14.0-18.0); Mean Corpuscular HGB CONC 34.3 g/dL (32.0-36.0); Mean Corpuscular Hemoglobin 31.1 pg (27.0-31.0); Mean Corpuscular Volume 90.7 fL (78.0-98.0); Mean Platelet Volume 7.9 fL (7.4-10.4); Platelet Count 285 thou/uL (130-400); RBC Distribution Width 14.5 % (11.5-14.5); Red Blood Cell (RBC) Count 4.64 mill/uL (4.70-6.10); White Blood Cell (WBC) Count 5.6 thou/uL (4.8-10.8)
[2020-02-03 14:14] LABS: Anion Gap 12 mmol/L (10-20); BUN (Urea Nitrogen) 13 mg/dL (8.4-25.7); Calc. Creatinine Clearance 0 mL/min (70-130); Calcium 8.8 mg/dL (7.8-10.44); Carbon Dioxide 24 mmol/L (23-31); Chloride 105 mmol/L (98-107); Estimated GFR-MDRD 77; Glucose 91 mg/dL (80-115); Potassium 3.9 mmol/L (3.5-5.1); Sodium 137 mmol/L (136-145)
[2020-02-03 14:25] LABS: INR-International Normal Ratio 1.9; Prothrombin Time 22.1 sec (12.0-14.7)
[2020-02-03 14:26] LABS: PTT 44.2 sec (22.9-36.1)
[2020-02-04 11:34] LABS: SARS-CoV-2 MS2 Positive; SARS-CoV-2 N Gene Negative; SARS-CoV-2 S Gene Negative; SARS-CoV-2 orf1ab Negative
== END 2020-02-03 07:06 | disposition home or self-care (01) ==
LOC: LABBT 07:05
PROVIDERS: ATTEND Urology
DX: Z01.812 Encounter for preprocedural laboratory examination (principal); Z11.59 Encounter for screening for other viral diseases; N13.30 Unspecified hydronephrosis; Z96.0 Presence of urogenital implants
CPT/HCPCS: 80048; 85027; 85610; 85730; 87635; U0003

== ENCOUNTER 2020-02-06 07:28 | Day surgery (SDC) | payer OTHER, SELFPAY ==
[2020-02-02 14:17] VITALS: BMI 19.2
[2020-02-06] MEDS ORDERED: Levofloxacin 500 mg/D5W 100 ml Premix Bag ONE (09:40)
[2020-02-06] MEDS ORDERED: Iopamidol 50 ML FS ONE (09:42)
[2020-02-06] MEDS ORDERED: Fentanyl 100 MCG/2 ML VIAL ONE (09:58)
[2020-02-06] MEDS ORDERED: Furosemide 20 MG/2 ML VIAL ONE (10:55)
[2020-02-06] MEDS ORDERED: EPHEDRINE 25 MG/5 ML SYRINGE ONE (11:55)
[2020-02-06] MEDS ORDERED: PROPOFOL 200 MG/20 ML VIAL ONE (11:55)
[2020-02-06] MEDS ORDERED: Lidocaine 1% PF 5 ML VIAL ONE (11:55)
[2020-02-06] MEDS ORDERED: Ondansetron PF 4 MG/2 ML Vial ONE (11:55)
--- NOTE | 2020-02-06 12:45 | RAD ---
RETROGRADE PYELOGRAM: Six fluorosocpic images are presented from a retrograde study in the OR. INDICATION: Intraoperative imaging during pyelogram and stent placement. FINDINGS/IMPRESSION: Images demonstrate catheterization of the left ureter and opacification of left collecting structures . A wire is placed into the left upper collecting structures for stent placement. There is blunting and calyectasis noted in the upper collecting structures. POS: AGW
--- NOTE | 2020-02-06 13:37 | OP ---
DATE OF PROCEDURE: 02/06/2020 PREOPERATIVE DIAGNOSES: 1. Left ureteral obstruction. 2. Left ureteral stent. POSTOPERATIVE DIAGNOSES: 1. Left ureteral obstruction. 2. Left ureteral stent. PROCEDURES PERFORMED: 1. Cystoscopy. 2. Removal of left stent. 3. Left rigid and left flexible ureteroscopy with left retrograde. ANESTHETIC: General. ESTIMATED BLOOD LOSS: Minimal. FINDINGS: The bladder was free of tumor, foreign body, or stone. The left retrograde failed to show contrast going up the left ureter. We also had difficulty in feeding a wire up the ureter past about 2 to 3 cm, so we brought in a rigid ureteroscope and we were able to look in the ureter. He had a lot of edema and almost some finger-like areas of inflammation, that were keeping the wire from finding the central lumen. We were able, however, to get the rigid ureteroscope up to the level of the pelvic inlet and we were able to feed a guidewire the rest to the way up into the renal pelvis. We then went ahead and did flexible ureteroscopy over this all the way up to the renal pelvis. The only thing or finding is he has some edema of the ureter, do not see anything that actually looks like a stricture along the course of the ureter. At the end of the procedure, a retrograde study was done, that showed no extravasation and we were able to see contrast effluxing out the left distal ureter cystoscopically. There was some mild left hydro and I think this is probably going to be chronic for him. The stent was not replaced. DESCRIPTION OF PROCEDURE: After obtaining written and verbal consent from the patient, after receiving some IV antibiotics, he was taken to the operating suite. He was placed in a supine position on the treatment table. PlexiPulses were placed on his lower extremities and turned on. He was given a general anesthetic and oral obturator intubation. He was placed in the dorsal lithotomy position. He was sterilely prepped and draped. Cystoscopy was performed with a 22-Burmese sheath. This was well lubricated and passed under direct vision through the male urethra into the urinary bladder with aid of a 30-degree lens and a video camera and monitor. The bladder was filled and emptied a number of times, examined with both the 30 and the 70-degree lens. The distal end of the double-J stent was grasped and brought out through the urethral meatus and removed entirely. At this point, we placed a 5-Burmese Pollack catheter up the left ureteral orifice about 2 cm, injected contrast, it went up another a centimeter or 2 and then it stopped and then it just came back into the bladder. I attempted to feed a guidewire and then the angled Glidewire, but could not get it to manipulate by this point, so at that point, we removed the open-ended catheter and removed the scope and brought in a rigid ureteroscope under direct vision with aid of a video camera and monitor. This was passed through the male urethra into the bladder and up the left ureter. I could see just a lot of edema. The ureter was open and the stent easily passed along this ureter, that did not look suspicious for stricture or for any type of malignancy, maybe just some chronic inflammation from his Crohn's or from his stent. We got this up as far as we could easily go and we were able to feed a guidewire through this all the way up into the area of the renal pelvis. This rigid scope was removed and we brought in a dual lumen catheter, placed over this guidewire up to the region of renal pelvis, injected contrast to fill out the renal pelvis and proximal ureter, then fed a 2nd blue Stiff guidewire through this dual lumen and then removed the dual lumen, then over the blue Stiff wire, passed a flexible ureteroscope, placed it all the way up into the region of the renal pelvis, removed the blue wire and then backed out the scope as we examined the ureter its entirety. Apart from a bunch of edema, we did not find any area of stricture formation nor any stones nor anything that look like tumor. At this point, we replaced the dual-lumen catheter into the region of renal pelvis, injected contrast, removed the dual-lumen catheter, leaving the green wire in. We watched and saw efflux of contrast out the distal left ureter, and at this point, we emptied the bladder, removed the green wire, removed the scopes, and the patient was taken out of dorsal lithotomy position, awakened, extubated, and taken by stretcher to recovery room. Job ID: [id number]
== END 2020-02-06 13:40 | disposition home or self-care (01) ==
LOC: SDC 07:28
PROVIDERS: ATTEND Urology
PROC: BT1F1ZZ Fluoroscopy of Left Kidney, Ureter and Bladder using Low Osmolar Contrast (ICD-10-PCS; principal; 2020-02-06)
PROC: 0TP98DZ Removal of Intraluminal Device from Ureter, Via Natural or Artificial Opening Endoscopic (ICD-10-PCS; principal; 2020-02-06)
DX: N13.1 Hydronephrosis with ureteral stricture, not elsewhere classified (principal); J44.9 Chronic obstructive pulmonary disease, unspecified; K50.90 Crohn's disease, unspecified, without complications; Z79.01 Long term (current) use of anticoagulants; Z88.0 Allergy status to penicillin
CPT/HCPCS: 74420; J1940; J1956; J2001; J2405; J2704; J3010; Q9967